=== PATIENT | male | born 1960 | race Two or more races ===

== ENCOUNTER 2018-10-25 14:06 | Inpatient (IN) | payer OTHER ==
[2018-10-25 14:21] VITALS: BMI 29.9
[2018-10-25] MEDS ORDERED: LABETALOL HCL 5 MG/1 ML (100MG/20 ML VIAL) IVPUSH ONE ×2 (14:22→15:41)
[2018-10-25] MEDS ORDERED: ONDANSETRON 4 MG/2 ML VIAL IVPUSH ONE (14:22)
[2018-10-25] MEDS ORDERED: SODIUM CHLORIDE 0.9% 1000 ML INFUS.BAG IV ONE (14:22)
[2018-10-25] MEDS ORDERED: PANTOPRAZOLE SODIUM 40 MG in SODIUM CHLORIDE 100 ML IVPB ONE (14:22)
--- NOTE | 2018-10-25 14:35 | PDOC ---
History of Present Illness - General Chief Complaint: Coffee Ground Emesis Stated Complaint: Nausea/Vomiting Time Seen by Provider: 10/25/18 14:12 History Source: Patient Exam Limitations: No Limitations - History of Present Illness Initial Comments: 10/25/18 15:15 58M with a PMH of hep C, DM, HTN, ESRD on dialysis MWF who presents to the ER from his dialysis center for nausea and coffee ground emesis. The patient states that he's had 3 days of nausea and coffee ground emesis with epigastric abdominal pain, intermittent, nonradiating. He denies CP, SOB, fever, chills. He denies hematochezia or melena. He denies any asa use. Past History - Past Medical History Allergies/Adverse Reactions: Allergies Allergy/AdvReac Type Severity Reaction Status Date / Time amlodipine [From [facility]] Allergy Verified 10/25/18 14:12 Home Medications: Ambulatory Orders Pantoprazole Sodium [Protonix -] 40 mg PO ONCE #20 tablet.ec 01/25/14 Metoprolol Succinate [Toprol Xl -] 50 mg PO DAILY 05/20/17 Sevelamer Carbonate [Renvela -] 2 tab PO TID 05/20/17 Albuterol Sulfate Inhaler - [Ventolin HFA Inhaler -] 1 - 2 inh PO Q4H PRN Atorvastatin Calcium [Lipitor] 20 mg PO HS 10/26/18 Insulin Glargine,Hum.rec.anlog [Basaglar Kwikpen U-100] 20 units SQ BID Zolpidem Tartrate [Ambien] 10 mg PO HS 10/26/18 Asthma: Yes Cancer: No Cardiac Disorders: No CVA: No COPD: No CHF: No Dementia: No Diabetes: Yes Dialysis: Yes GI Disorders: No Disorders: No HTN: Yes Hypercholesterolemia: No Liver Disease: Yes Seizures: No Thyroid Disease: No Other medical history: dialysis - Surgical History Abdominal Surgery: Yes (laceration) Appendectomy: No Cardiac Surgery: No Cholecystectomy: No Lung Surgery: No Neurologic Surgery: No Orthopedic Surgery: Yes (Bilateral lower leg fracture repair, pin placement) - Immunization History Immunization Up to Date: Yes - Suicide/Smoking/Psychosocial Hx Smoking History: Never smoked Have you smoked in the past 12 months: No If you are a former smoker, when did you quit?: 1990 'Breaking Loose' booklet given: 02/15/14 Hx Alcohol Use: No Drug/Substance Use Hx: No Review of Systems - Review of Systems Able to Perform ROS?: Yes Comments:: 10/25/18 15:19 GENERAL/CONSTITUTIONAL: No fever or chills. No weakness. HEAD, EYES, EARS, NOSE AND THROAT: No change in vision. No ear pain or discharge. No sore throat. CARDIOVASCULAR: No chest pain, palpitations, or lightheadedness. RESPIRATORY: No cough, wheezing, shortness of breath, or hemoptysis. GASTROINTESTINAL: + for nausea, vomiting, abdominal pain. GENITOURINARY: No dysuria, frequency, hematuria, or change in urination. MUSCULOSKELETAL: No joint or muscle swelling or pain. No neck or back pain. SKIN: No rash or lesions. NEUROLOGIC: No headache, numbness, tingling, focal weakness, loss of consciousness, or change in strength/sensation. Is the patient limited Kittitian proficient: No *Physical Exam - Vital Signs Last Vital Signs Temp Pulse Resp BP Pulse Ox 82 16 193/96 H 97 10/25/18 14:08 10/25/18 14:08 10/25/18 14:08 10/25/18 14:08 - Physical Exam Comments: 10/25/18 15:21 GENERAL: Well developed, well nourished. Awake and alert. No acute distress. HEENT: Normocephalic, atraumatic. Hearing grossly normal. Moist mucous membranes. PERRLA, EOMI. No conjunctival pallor. Sclera are non-icteric. NECK: Supple. Full ROM. No JVD. CARDIOVASCULAR: Regular rate and rhythm. No murmurs, rubs, or gallops. PULMONARY: No evidence of respiratory distress. Lungs clear to auscultation bilaterally. No wheezing, rales or rhonchi. ABDOMINAL: Soft. TTP w/ voluntary guarding over epigastrium. Negative Kaufman's. Non-distended. No rebound or guarding. MUSCULOSKELETAL: Normal range of motion at all joints. No bony deformities or tenderness. EXTREMITIES: No cyanosis. No clubbing. No edema. No calf tenderness or swelling. SKIN: Warm and dry. Normal capillary refill. No rashes. No jaundice. NEUROLOGICAL: Alert, awake, appropriate. Cranial nerves 2-12 grossly intact. Normal speech. Gait is normal without ataxia. PSYCHIATRIC: Cooperative. Good eye contact. Appropriate mood and affect. Heart Score/ECG Review #1 General ECG Interpretation: Sinus Rhythm, Normal Rate, Normal Intervals, No acute ischemic changes Compared to previous ECG there are: No significant change 10/25/18 15:22 NSR vent rate 80 VA 166 QRS 92 QTc 472 No STD or ANJANA No signs of acute ischemia Possible [facility] ED Treatment Course - LABORATORY CBC & Chemistry Diagram: 10/26/18 16:03 10/26/18 05:30 - RADIOLOGY Radiology Studies Ordered: Category Date Time Status CHEST X-RAY PORTABLE* [RAD] Stat Radiology 10/25/18 14:28 Ordered Medical Decision Making - Medical Decision Making 10/25/18 14:30 58M with a PMH of Hep C, HTN, DM, ESRD on dialysis MWF who had 3 our of 4 hours of dialysis today who presents with nausea and coffee ground emesis with epigastric abd pain. Pt was seen at [facility] yesterday. CTAP on 10/24 at [facility]: No acute process. Liver nodularity. No FF. Case d/w Dr. Vanegas, pt's GI doctor, who has not seen pt in 2 years. He states to give reglan, zofran, and protonix. Will hold on fluids and treat BP with labetalol (pt takes metoprolol but cannot tolerate PO and threw up his medications). Pending labs. Preliminary read of CXR shows mild hilar congestion without widening of mediastinum, less concerning for boorhave. 10/25/18 16:35 CBC shows mild leukocytosis, likely reactive. CMP unremarkable. Trop and lipase negative. Pt has not vomited since medications given. Most recent BP is 166/78. 10/25/18 18:31 Pt has not vomited since medications. Second labetalol not needed. Pending CT's. 10/25/18 19:03 Pt signed out to Dr. Rosa for further workup. *DC/Admit/Observation/Transfer Diagnosis at time of Disposition: ESRD (end stage renal disease), Abdominal pain, Hypertensive urgency, Coffee ground emesis Nausea & vomiting Qualifiers: Vomiting type: unspecified Vomiting Intractability: non-intractable Qualified Code(s): R11.2 - Nausea with vomiting, unspecified - Discharge Dispostion Disposition: HOME Condition at time of disposition: Improved - Referrals - Patient Instructions - Post Discharge Activity
[2018-10-25 14:58] LABS: BASO % 0.8 % (0-2.0); EOS % 0.1 % (0-4.5); HEMATOCRIT 43.1 % (35.4-49); HEMOGLOBIN 14.5 GM/dL (11.7-16.9); MCH 32.8 pg (25.7-33.7); MCHC 33.6 g/dl (32.0-35.9); MEAN CELL VOLUME 97.6 fl (80-96); MEAN PLT VOLUME 8.8 fl (7.5-11.1); MONO % 3.6 % (3.8-10.2); NEUT % 91.5 % (42.8-82.8); PLATELET COUNT 205 K/MM3 (134-434); RBC 4.42 M/mm3 (4.00-5.60); RDW 15.3 % (11.9-15.9); WHITE BLOOD COUNT 14.4 K/mm3 (4.0-10.0)
[2018-10-25] MEDS ORDERED: METOCLOPRAMIDE HCL INJECTION 10 MG/2 ML VIAL IVPB ONE (14:58)
[2018-10-25] MEDS ORDERED: METOCLOPRAMIDE HCL INJECTION 10 MG/2 ML VIAL ONE (15:03)
[2018-10-25] MEDS ORDERED: LABETALOL HCL 5 MG/1 ML (200MG/40ML VIAL) IVPB ONE (15:03)
[2018-10-25] MEDS ORDERED: PANTOPRAZOLE SODIUM 40 MG/100 ML BAG IVPB ONE (15:04)
[2018-10-25] MEDS ORDERED: ONDANSETRON 4 MG/2 ML VIAL ONE (15:04)
[2018-10-25 15:11] LABS: INR 1.1 (0.83-1.09)
[2018-10-25 15:30] LABS: ALBUMIN 4.7 g/dl (3.4-5.0); ALK PHOS 128 U/L (45-117); ANION GAP 10 MMOL/L (8-16); BILIRUBIN,TOTAL 0.8 mg/dL (0.2-1); BLOOD UREA NITROGEN 15 mg/dL (7-18); CALCIUM 10.5 mg/dL (8.5-10.1); CHLORIDE 93 mmol/L (98-107); CO2 30 mmol/L (21-32); GLUCOSE,RANDOM 189 mg/dL (74-106); LIPASE 61 U/L (73-393); POTASSIUM 4.2 mmol/L (3.5-5.1); SGOT/AST 23 U/L (15-37); SGPT/ALT 27 U/L (13-61); SODIUM 132 mmol/L (136-145); TOT PROT 9.5 g/dl (6.4-8.2)
[2018-10-25 15:33] LABS: ANISOCYTOSIS 0; MACROCYTOSIS 0; PLATELET ESTIMATE NORMAL
[2018-10-25] MEDS ORDERED: FAMOTIDINE 20 MG/50 ML IVPB 20 MG/50 ML MG IVPB ONE (15:45)
--- NOTE | 2018-10-25 15:46 | PDOC ---
Documentation entered by Mariela Wells SCRIBE, acting as scribe for Lexi Yousif MD. Lexi Yousif MD: This documentation has been prepared by the jamaalibe, Mariela Wells SCRIBE, under my direction and personally reviewed by me in its entirety. I confirm that the documentation accurately reflects all work, treatment, procedures, and medical decision making performed by me. Attending Attestation - Resident Resident Name: RichallendannyNatanael - ED Attending Attestation I have performed the following: I have examined & evaluated the patient, The case was reviewed & discussed with the resident, I agree w/resident's findings & plan, Exceptions are as noted - HPI HPI: 10/25/18 15:22 The patient is a 58 year old male with a significant past medical history of asthma , GERD, hypertension and ESRD who presents to the emergency department with 3 days of coffee ground emesis. The patient reports that he has been experiencing some associated epigastric pain with his symptoms. The patient states that he was at his dialysis treatment today when he had another episode of coffee ground emesis. The patient subsequently was sent to the ED before finishing his dialysis (he finished 3 of 4 hours). It is noted that the patient was recently seen at [facility] ED for similar complaints 2 days ago. He denies ad other symptoms or complaints at time of exam. - Physicial Exam PE: 10/25/18 15:43 awake alert lungs clear bilaterally heart rrr. no mrg abd soft. epigastric ttp. ext wwp no edema. no calf tenderness. skin mild diphoresis nuero alert oriented x 3. - Medical Decision Making 10/25/18 15:33 58 yo male h/o esrd gerd, dm htn hep c here with n/v at dialysis. pt has been unable to tolerate his meds today due to vomiting. was able to complete 3 or 4 hours at dialysis unable to finish due to intractable vomiting. pt was seen at [facility] yesterday had ct a/p no contrast performed which was negative except for nodularity of liver. on exam pt with awake alert normal heart lung exam. abd ttp over epigastrum. no rebound no guarding. no cva tenderness. differential atypical acs, cholelithiasis, dka dehydration, electorlyte abnormalities. c/o headache. will ct head r/o intracranial cause for n/v. will cxr r/o pneumonia. d/w [facility]. faxed copy of ct a/p to avoid over radiation. given labetalol 10 mg ivp for bp as pt unable to tolerate po. will likely require admission for intractable vomiting. d/w dr hanson. will see pt [facility]. Heart Score/ECG Review #1 ECG reviewed & interpreted by me at: 15:45 General ECG Interpretation: Sinus Rhythm, Normal Rate, Normal Intervals, No acute ischemic changes (TWi III only.)
--- NOTE | 2018-10-25 17:57 | PDOC ---
*Physical Exam - Vital Signs Last Vital Signs Temp Pulse Resp BP Pulse Ox 75 16 166/88 97 10/25/18 15:43 10/25/18 15:15 10/25/18 16:25 10/25/18 15:15 - Physical Exam Comments: 10/25/18 17:55 gen: awake, alert, uncomfortable abd: soft, mild diffuse ttp, no rebound or gurding, dry heaving after exam ED Treatment Course - LABORATORY CBC & Chemistry Diagram: 10/25/18 14:35 10/25/18 14:35 - ADDITIONAL ORDERS Additional order review: Laboratory Results 10/25/18 10/25/18 10/25/18 14:35 14:35 14:35 PT with INR 13.00 INR 1.10 H Sodium 132 L Potassium 4.2 Chloride 93 L Carbon Dioxide 30 Anion Gap 10 BUN 15 Creatinine 5.0 H Creat Clearance w eGFR 11.90 Random Glucose 189 H Calcium 10.5 H Total Bilirubin 0.8 AST 23 ALT 27 Alkaline Phosphatase 128 H Creatine Kinase 142 Troponin I 0.03 Total Protein 9.5 H Albumin 4.7 Lipase 61 L Blood Type O POSITIVE Antibody Screen Negative 10/25/18 14:35 RBC 4.42 MCV 97.6 H MCHC 33.6 RDW 15.3 D MPV 8.8 Neutrophils % 91.5 H Lymphocytes % 4.0 L D Monocytes % 3.6 L Eosinophils % 0.1 D Basophils % 0.8 - Medications Given in the ED: ED Medications Discontinued Medications Generic Name Dose Route Start Last Admin Trade Name Freq PRN Reason Stop Dose Admin Pantoprazole Sodium 40 mg/ 100 mls @ 200 mls/hr 10/25/18 14:22 10/25/18 15:10 Sodium Chloride IVPB 10/25/18 14:51 200 mls/hr ONCE ONE Administration Famotidine/Sodium Chloride 20 mg in 50 mls @ 100 mls/hr 10/25/18 15:45 15:56 Pepcid 20 Mg Premixed Ivpb - IVPB 10/25/18 16:14 100 mls/hr ONCE ONE Administration Labetalol HCl 10 mg 10/25/18 14:22 10/25/18 15:18 Normodyne Injection - IVPUSH 10/25/18 14:23 10 mg ONCE ONE Administration Labetalol HCl 10 mg 10/25/18 15:41 04/24/19 15:56 Normodyne Injection - IVPUSH 10/25/18 15:42 Not Given ONCE ONE Metoclopramide HCl 10 mg 10/25/18 14:58 10/25/18 15:10 Reglan Injection - IVPB 10/25/18 14:59 10 mg ONCE ONE Administration Ondansetron HCl 4 mg 10/25/18 14:22 10/25/18 15:10 Zofran Injection IVPUSH 10/25/18 14:23 4 mg ONCE ONE Administration Sodium Chloride 1,000 ml 10/25/18 14:22 10/25/18 15:22 Normal Saline - IV 10/25/18 14:23 Not Given ONCE ONE Medical Decision Making - Medical Decision Making 10/25/18 17:55 58yo male signed out from the prior attending pending labs, ct imaging -pt with uncontrolled BP, iv meds given -persistent intractable n/v -bedside ultrasound the GB was negative for acute monique or acute findings -ct imaging without contrast was negative at [facility] -pt pending ct head and abd/pelvis 10/25/18 17:57 mildly elevated wbc 10/25/18 17:58 mild congestive changes on cxr 10/25/18 17:58 pt with ESRD on HD 10/25/18 20:39 no acute findings on abd ct no acute findings on head ct Dr. Hernandez has discussed with Dr. Sorensen from nephro intractable n/v- poss coffee grounds microblog [facility] Alonso 10/25/18 21:27 resident discussed the case with Dr. Nj who accepts pt to service *DC/Admit/Observation/Transfer Diagnosis at time of Disposition: Nausea & vomiting, ESRD (end stage renal disease), Abdominal pain - Discharge Dispostion Condition at time of disposition: Guarded Decision to Admit order: Yes - Referrals Referrals: Bren Alonso MD [Primary Care Provider] - - Patient Instructions - Post Discharge Activity
--- NOTE | 2018-10-25 19:15 | PDOC ---
*Physical Exam - Vital Signs Last Vital Signs Temp Pulse Resp BP Pulse Ox 75 16 166/88 97 10/25/18 15:43 10/25/18 15:15 10/25/18 16:25 10/25/18 15:15 ED Treatment Course - LABORATORY CBC & Chemistry Diagram: 10/25/18 14:35 10/25/18 14:35 - ADDITIONAL ORDERS Additional order review: Laboratory Results 10/25/18 10/25/18 10/25/18 14:35 14:35 14:35 PT with INR 13.00 INR 1.10 H Sodium 132 L Potassium 4.2 Chloride 93 L Carbon Dioxide 30 Anion Gap 10 BUN 15 Creatinine 5.0 H Creat Clearance w eGFR 11.90 Random Glucose 189 H Calcium 10.5 H Total Bilirubin 0.8 AST 23 ALT 27 Alkaline Phosphatase 128 H Creatine Kinase 142 Troponin I 0.03 Total Protein 9.5 H Albumin 4.7 Lipase 61 L Blood Type O POSITIVE Antibody Screen Negative 10/25/18 14:35 RBC 4.42 MCV 97.6 H MCHC 33.6 RDW 15.3 D MPV 8.8 Neutrophils % 91.5 H Lymphocytes % 4.0 L D Monocytes % 3.6 L Eosinophils % 0.1 D Basophils % 0.8 - Medications Given in the ED: ED Medications Discontinued Medications Generic Name Dose Route Start Last Admin Trade Name Shubhamq PRN Reason Stop Dose Admin Pantoprazole Sodium 40 mg/ 100 mls @ 200 mls/hr 10/25/18 14:22 10/25/18 15:10 Sodium Chloride IVPB 10/25/18 14:51 200 mls/hr ONCE ONE Administration Famotidine/Sodium Chloride 20 mg in 50 mls @ 100 mls/hr 10/25/18 15:45 15:56 Pepcid 20 Mg Premixed Ivpb - IVPB 10/25/18 16:14 100 mls/hr ONCE ONE Administration Labetalol HCl 10 mg 10/25/18 14:22 10/25/18 15:18 Normodyne Injection - IVPUSH 10/25/18 14:23 10 mg ONCE ONE Administration Labetalol HCl 10 mg 10/25/18 15:41 10/25/18 15:56 Normodyne Injection - IVPUSH 10/25/18 15:42 Not Given ONCE ONE Metoclopramide HCl 10 mg 10/25/18 14:58 10/25/18 15:10 Reglan Injection - IVPB 10/25/18 14:59 10 mg ONCE ONE Administration Ondansetron HCl 4 mg 10/25/18 14:22 10/25/18 15:10 Zofran Injection IVPUSH 10/25/18 14:23 4 mg ONCE ONE Administration Sodium Chloride 1,000 ml 10/25/18 14:22 10/25/18 15:22 Normal Saline - IV 10/25/18 14:23 Not Given ONCE ONE Medical Decision Making - Medical Decision Making Pt was signed out to me by resident Dr. Hernandez, who explained the presentation, ED course, any pending results, and needed interventions. Pending results include CT abd/pelvis with IV contrast. Pt is currently stable and BP has improved after interventions from arrival. 10/25/18 19:14 CT head showed no acute pathology. CT abd/pelvis: Impression: No definite specific bleeding site is identified. In comparison to a 2014 CT study interval development of at least moderate bilateral renal atrophy is noted. 10/25/18 20:40 Paging hospitalist team for admission to tele inpatient with dialysis bed. 10/25/18 20:50 Stool for occult blood sent to lab. 10/25/18 21:11 Stool for occult blood negative. Pt resting comfortably in bed. Spoke with Dr. Nj, pt admitted to Dr. Denise Meraz. 10/25/18 21:26 *DC/Admit/Observation/Transfer Diagnosis at time of Disposition: Hypertensive urgency, ESRD (end stage renal disease), Coffee ground emesis Nausea & vomiting Qualifiers: Vomiting type: unspecified Vomiting Intractability: non-intractable Qualified Code(s): R11.2 - Nausea with vomiting, unspecified - Discharge Dispostion Condition at time of disposition: Stable Decision to Admit order: Yes - Referrals Referrals: Bren Alonso MD [Primary Care Provider] - - Patient Instructions - Post Discharge Activity
[2018-10-25] MEDS ORDERED: ALBUTEROL SO4 2.5/IPRATROPIUM 0.5 INH SOL 3 ML VIAL.NEB. NEB ONE ×2 (20:47→20:51)
[2018-10-25] MEDS ORDERED: ZOLPIDEM TARTRATE 5 MG TABLET PO ONE (21:59)
[2018-10-25] MEDS ORDERED: ZOLPIDEM TARTRATE 5 MG TABLET ONE (22:37)
--- NOTE | 2018-10-25 22:38 | HP ---
CHIEF COMPLAINT: coffee ground emesis PCP: Bren Durant HISTORY OF PRESENT ILLNESS: 58 year old male ESRD on HD m-- brought in for episode of coffee ground emesis which occured on 10/25 during his hemodialysis session and concern for GI bleed. Patient reported multiple episodes of nonbloody vomiting and diarrhea since this past tuesday and thinks it may be from food poisoning. Denied any recent travels. He has history of PUD s/p EGD about 10 years ago. He admitted to using NSAIDS recently for lower extremity pain. 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 Currently does not use drugs Family History:no Allergies amlodipine [From [facility]] Allergy (Verified 10/25/18 14:12) HOME MEDICATIONS: Home Medications Medication Instructions Recorded Insulin Aspart [Novolog] 20 units SQ DAILY 01/24/14 Insulin Glargine,Hum.rec.anlog 20 units SQ HS 01/24/14 [Lantus Solostar PEN -] Tamsulosin HCl [Flomax -] 0.4 mg PO DAILY 01/24/14 Ondansetron [Zofran Odt -] 4 mg SL TID #30 od.tablet 01/25/14 Pantoprazole Sodium [Protonix -] 40 mg PO ONCE #20 tablet.ec 01/25/14 Aspirin [ASA -] 81 mg PO DAILY 05/20/17 Budesonide/Formeterol Fumarate 1 inh PO BID 05/20/17 [SYMBICORT 160/4.5mcg -] Ferrous Sulfate 325 mg PO DAILY 05/20/17 Furosemide [Lasix] 40 mg PO DAILY 05/20/17 Hydralazine HCl 100 mg PO TID 05/20/17 Losartan Potassium [Cozaar -] 1,050 mg PO DAILY 05/20/17 Metolazone 10 mg PO DAILY 05/20/17 Metoprolol Succinate [Toprol Xl -] 50 mg PO DAILY 05/20/17 Paroxetine HCl 10 mg PO DAILY 05/20/17 Ranexa 500 mg PO DAILY 05/20/17 Sevelamer Carbonate [Renvela -] 1 tab PO TID 05/20/17 Tamsulosin HCl 0.4 mg PO DAILY 05/20/17 REVIEW OF SYSTEMS CONSTITUTIONAL: Absent: fever, chills, diaphoresis, generalized weakness, malaise, loss of appetite, weight change HEENT: Absent: rhinorrhea, nasal congestion, throat pain, throat swelling, difficulty swallowing, mouth swelling, ear pain, eye pain, visual changes CARDIOVASCULAR: Absent: chest pain, syncope, palpitations, irregular heart rate, lightheadedness , peripheral edema RESPIRATORY: Absent: cough, shortness of breath, dyspnea with exertion, orthopnea, wheezing, stridor, hemoptysis GASTROINTESTINAL: Absent: abdominal pain, abdominal distension, constipation, melena, hematochezia present-nausea, vomiting, diarrhea, GENITOURINARY: Absent: dysuria, frequency, urgency, hesitancy, hematuria, flank pain, genital pain MUSCULOSKELETAL: Absent: myalgia, arthralgia, joint swelling, back pain, neck pain SKIN: Absent: rash, itching, pallor HEMATOLOGIC/IMMUNOLOGIC: Absent: easy bleeding, easy bruising, lymphadenopathy, frequent infections ENDOCRINE: Absent: unexplained weight gain, unexplained weight loss, heat intolerance, cold intolerance NEUROLOGIC: Absent: headache, focal weakness or paresthesias, dizziness, unsteady gait, seizure, mental status changes, bladder or bowel incontinence PSYCHIATRIC: Absent: anxiety, depression, suicidal or homicidal ideation, hallucinations. PHYSICAL EXAMINATION Vital Signs - 24 hr 10/25/18 10/25/18 10/25/18 14:08 15:15 15:43 Pulse Rate 82 Pulse Rate [ 80 75 Right] Respiratory 16 16 Rate Blood Pressure 193/96 H Blood Pressure 225/93 H 187/78 H [Left Arm] O2 Sat by Pulse 97 97 Oximetry (%) 10/25/18 16:25 Pulse Rate Pulse Rate [ Right] Respiratory Rate Blood Pressure Blood Pressure 166/88 [Left Arm] O2 Sat by Pulse Oximetry (%) GENERAL: Awake, alert, and fully oriented, in no acute distress. HEAD: Normal with no signs of trauma. EYES: Pupils equal, round and reactive to light, extraocular movements intact, sclera anicteric, conjunctiva clear. No lid lag. EARS, NOSE, THROAT: Ears normal, nares patent, oropharynx clear without exudates. Moist mucous membranes. NECK: Normal range of motion, supple without lymphadenopathy, JVD, or masses. LUNGS: Breath sounds equal, clear to auscultation bilaterally. No wheezes, and no crackles. No accessory muscle use. HEART: Regular rate and rhythm, normal S1 and S2 without murmur, rub or gallop. ABDOMEN: Soft, nontender, not distended, normoactive bowel sounds, midline scar s/p ex lap surgery MUSCULOSKELETAL: Normal range of motion at all joints. No bony deformities or tenderness. No CVA tenderness. UPPER EXTREMITIES:right upper ext AV fistul good thrill and bruit LOWER EXTREMITIES: 2+ pulses, warm, well-perfused. No calf tenderness. No peripheral edema. NEUROLOGICAL: Cranial nerves II-XII intact. Normal speech. Normal gait. PSYCHIATRIC: Cooperative. Good eye contact. Appropriate mood and affect. SKIN: Warm, dry, normal turgor, no rashes or lesions noted, normal capillary refill. Laboratory Results - last 24 hr 10/25/18 10/25/18 10/25/18 14:35 14:35 14:35 WBC 14.4 H RBC 4.42 Hgb 14.5 Hct 43.1 D MCV 97.6 H MCH 32.8 MCHC 33.6 RDW 15.3 D Plt Count 205 MPV 8.8 Absolute Neuts (auto) 13.2 H Neutrophils % 91.5 H Neutrophils % (Manual) 89.0 H Band Neutrophils % 0.0 Lymphocytes % 4.0 L D Lymphocytes % (Manual) 3.0 L Monocytes % 3.6 L Monocytes % (Manual) 6 Eosinophils % 0.1 D Eosinophils % (Manual) 0.0 Basophils % 0.8 Basophils % (Manual) 0.0 Myelocytes % (Man) 0 Promyelocytes % (Man) 0 Blast Cells % (Manual) 0 Nucleated RBC % 0 Metamyelocytes 2 Hypochromia 0 Platelet Estimate Normal Polychromasia 0 Poikilocytosis 0 Anisocytosis 0 Microcytosis 0 Macrocytosis 0 PT with INR INR Sodium 132 L Potassium 4.2 Chloride 93 L Carbon Dioxide 30 Anion Gap 10 BUN 15 Creatinine 5.0 H Creat Clearance w eGFR 11.90 Random Glucose 189 H Calcium 10.5 H Total Bilirubin 0.8 AST 23 ALT 27 Alkaline Phosphatase 128 H Creatine Kinase 142 Troponin I 0.03 Total Protein 9.5 H Albumin 4.7 Lipase 61 L Stool Occult Blood Blood Type O POSITIVE Antibody Screen Negative 10/25/18 10/25/18 14:35 21:06 WBC RBC Hgb Hct MCV MCH MCHC RDW Plt Count MPV Absolute Neuts (auto) Neutrophils % Neutrophils % (Manual) Band Neutrophils % Lymphocytes % Lymphocytes % (Manual) Monocytes % Monocytes % (Manual) Eosinophils % Eosinophils % (Manual) Basophils % Basophils % (Manual) Myelocytes % (Man) Promyelocytes % (Man) Blast Cells % (Manual) Nucleated RBC % Metamyelocytes Hypochromia Platelet Estimate Polychromasia Poikilocytosis Anisocytosis Microcytosis Macrocytosis PT with INR 13.00 INR 1.10 H Sodium Potassium Chloride Carbon Dioxide Anion Gap BUN Creatinine Creat Clearance w eGFR Random Glucose Calcium Total Bilirubin AST ALT Alkaline Phosphatase Creatine Kinase Troponin I Total Protein Albumin Lipase Stool Occult Blood Negative Blood Type Antibody Screen imaging studies reviewed ASSESSMENT/PLAN: #Coffee ground emesis - likely from upper GI bleed. Source of bleed may be gastric or duodenal ulcer since pt reports history of PUD. Recent use of NSAIDs make this more likely. Differential diagnosis also includes foodborne gastroenteritis. Patient is hemodynamically stable for admission to telemetry. -telemetry -protonix 40mg IV bid -avoid IV fluid since ESRD -zofran IV prn if nausea or vomiting -avoid NSAIDS., ASA, heparin sc -monitor VS q4hrs -keep NPO -PT, PTT, t, s -monitor cbc q6hrs -GI consult for possible EGD in am #ESRD on HD- m-w-f - does not appears fluid overloaded on exam -renal consult for HD -c/w home renal meds - Sevelamer, ferrous sulfate #HTN- likely secondary to renal failure -c/w home dose meds- furosemide, hydralazine, metolazone, Toprolol XL -would avoid ARBs due to risk of hyperkalemia in setting of renal failure #DM -uncontrolled , pt is NPO -loose novolog insulin sliding scale -a1c #Insomnia -ambien #DVT ppx- SCDs Visit type - Emergency Visit Emergency Visit: Yes ED Registration Date: 10/25/18 Care time: The patient presented to the Emergency Department on the above date and was hospitalized for further evaluation of their emergent condition. - New Patient This patient is new to me today: Yes Date on this admission: 10/25/18 - Critical Care Critical Care patient: No
[2018-10-25] MEDS ORDERED: ONDANSETRON 4 MG/2 ML VIAL IVPUSH PRN (22:49)
[2018-10-26] MEDS: hydrALAZINE HCL 50 MG TABLET (FP) PO SCH ×2 (06:12→14:04)
[2018-10-26] MEDS: INSULIN SLIDING SCALE (NOVOLOG) 1 VIAL SQ SCH ×3 (06:13→17:35)
[2018-10-26 06:32] LABS: BASO % 0.9 % (0-2.0); EOS % 0.6 % (0-4.5); HEMATOCRIT 38.6 % (35.4-49); HEMOGLOBIN 13.3 GM/dL (11.7-16.9); LYMPH % 11.3 % (8-40); MCH 33.4 pg (25.7-33.7); MCHC 34.4 g/dl (32.0-35.9); MEAN CELL VOLUME 97.1 fl (80-96); MEAN PLT VOLUME 8.6 fl (7.5-11.1); MONO % 6.2 % (3.8-10.2); PLATELET COUNT 200 K/MM3 (134-434); RBC 3.98 M/mm3 (4.00-5.60); RDW 15.4 % (11.9-15.9); WHITE BLOOD COUNT 9.1 K/mm3 (4.0-10.0)
[2018-10-26 07:01] LABS: BLOOD UREA NITROGEN 31 mg/dL (7-18); CREATININE 7.3 mg/dL (0.55-1.3); GLUCOSE,RANDOM 173 mg/dL (74-106); SODIUM 133 mmol/L (136-145)
[2018-10-26 07:02] LABS: ANION GAP 9 MMOL/L (8-16); CALCIUM 9.6 mg/dL (8.5-10.1); CHLORIDE 95 mmol/L (98-107); CO2 30 mmol/L (21-32); POTASSIUM 4.4 mmol/L (3.5-5.1)
--- NOTE | 2018-10-26 08:54 | CON.GI ---
Consult Consult Specialty:: GI Referred by:: Dr. Natanael Hernandez Reason for Consultation:: GI bleed - History of Present Illness Chief Complaint: coffee ground emesis and diarrhea History of Present Illness: Patient is a 58 y/o male with past medical history of ESRD (HD on --), Asthma , GERD, DM, BPH, PUD on EGD. Patient presented to ER with complaints of vomiting and diarrhea accompanied with lower burning abdominal pain and abdominal distention. Patient states vomitin started after ingesting anguillan food 10/22/18. Patient states vomitus was coffee colored and diarrhea was dark in color with 5 episodes per day. Denies recent travel, antibiotic use, fever. Vomiting was worsened with PO intake and would experience night awakening with diarrhea. Most recent labs show Hg 13.3 and stool OB negative in ER. Patient states last Endoscopy was one year ago but is unsure of date and last Colonoscopy was performed 03/2014 with colonic polyp. Denies rectal bleeding, abnormal weight loss, dysphagia. - History Source History Provided By: Patient Limitations to Obtaining History: No Limitations - Past Medical History Cardio/Vascular: Yes: HTN, Hyperlipdemia Gastrointestinal: Yes: GERD Renal/: Yes: BPH Endocrine: Yes: Diabetes Mellitus - Alcohol/Substance Use Hx Alcohol Use: No - Smoking History Smoking history: Former smoker Have you smoked in the past 12 months: No If you are a former smoker, when did you quit?: 1989 - Social History ADL: Independent History of Recent Travel: No Home Medications - Allergies Allergies/Adverse Reactions: Allergies Allergy/AdvReac Type Severity Reaction Status Date / Time amlodipine [From [facility]] Allergy Verified 10/25/18 14:12 - Home Medications Home Medications: Ambulatory Orders Insulin Aspart [Novolog] 20 units SQ DAILY 01/24/14 Insulin Glargine,Hum.rec.anlog [Lantus Solostar PEN -] 20 units SQ HS 01/24/14 Tamsulosin HCl [Flomax -] 0.4 mg PO DAILY 01/24/14 Pantoprazole Sodium [Protonix -] 40 mg PO ONCE #20 tablet.ec 01/25/14 Aspirin [ASA -] 81 mg PO DAILY 05/20/17 Budesonide/Formeterol Fumarate [SYMBICORT 160/4.5mcg -] 1 inh PO BID 05/20/17 Ferrous Sulfate 325 mg PO DAILY 05/20/17 Hydralazine HCl 100 mg PO TID 05/20/17 Losartan Potassium [Cozaar -] 1,050 mg PO DAILY 05/20/17 Metolazone 10 mg PO DAILY 05/20/17 Metoprolol Succinate [Toprol Xl -] 50 mg PO DAILY 05/20/17 Paroxetine HCl 10 mg PO DAILY 05/20/17 Ranexa 500 mg PO DAILY 05/20/17 Sevelamer Carbonate [Renvela -] 1 tab PO TID 05/20/17 Review of Systems - Review of Systems Constitutional: reports: No Symptoms Eyes: reports: No Symptoms HENT: reports: No Symptoms Neck: reports: No Symptoms Cardiovascular: reports: No Symptoms Gastrointestinal: reports: Abdominal Pain, Diarrhea, Nausea, Vomiting Genitourinary: reports: No Symptoms Breasts: reports: No Symptoms Reported Musculoskeletal: reports: No Symptoms Integumentary: reports: No Symptoms Neurological: reports: No Symptoms Endocrine: reports: No Symptoms Hematology/Lymphatic: reports: No Symptoms Psychiatric: reports: No Symptoms Physical Exam-GI Vital Signs: Vital Signs Temperature 98.6 F 10/26/18 06:00 Pulse Rate 71 10/26/18 06:00 Respiratory Rate 18 10/26/18 06:00 Blood Pressure 156/88 10/26/18 06:00 O2 Sat by Pulse Oximetry (%) 98 10/26/18 01:00 Constitutional: Yes: No Distress, Calm Eyes: Yes: Conjunctiva Clear HENT: Yes: Atraumatic Cardiovascular: Yes: Regular Rate and Rhythm Respiratory: Yes: Regular, Wheezes Gastrointestinal Inspection: Yes: WNL. No: Ascites, Distention, Hernia, Scars, Other ...Auscultate: Yes: Normoactive Bowel Sounds. No: Hyperactive Bowel Sounds, Hypoactive Bowel Sounds, No Bowel Sounds, Other ...Palpate: Yes: Soft. No: Firm/Rigid, Guarding, Hepatomegaly, Mass, Pulsatile Mass, Splenomegaly, Tenderness, Tenderness, Epigastium, Tenderness, Rebound, Other ...Percussion: Yes: Tympanitic. No: Dullness, Fluid Wave, Other Neurological: Yes: Alert, Oriented Psychiatric: Yes: Alert, Oriented Labs: CBC, BMP 10/26/18 05:30 10/26/18 05:30 INR, PTT INR 1.10 (0.83-1.09) H 10/25/18 14:35 Active Medications Generic Name Dose Route Start Last Admin Trade Name Freq PRN Reason Stop Dose Admin Budesonide/Formoterol Fumarate 1 puff 10/26/18 10:00 Symbicort 160/4.5mcg - IH BID [facility] Ferrous Sulfate 325 mg 10/26/18 10:00 Feosol - PO DAILY [facility] Furosemide 40 mg 10/26/18 10:00 Lasix - PO DAILY [facility] Hydralazine HCl 100 mg 10/26/18 06:00 10/26/18 06:12 Apresoline - PO 100 mg TID [facility] Administration Insulin Aspart 1 vial 10/26/18 07:00 10/26/18 06:13 Novolog Vial Sliding Scale - SQ Not Given ACHS [facility] Protocol Metolazone 10 mg 10/26/18 10:00 Zaroxolyn - PO DAILY [facility] Metoprolol Succinate 50 mg 10/26/18 10:00 Toprol Xl - PO DAILY [facility] Ondansetron HCl 4 mg 10/25/18 22:49 Zofran Injection IVPUSH Q6H PRN NAUSEA AND/OR VOMITING Pantoprazole Sodium 40 mg 10/26/18 10:00 Protonix Iv IVPUSH BID [facility] Paroxetine HCl 10 mg 10/26/18 10:00 Paxil - PO DAILY [facility] Ranolazine 500 mg 10/26/18 10:00 Ranexa - PO DAILY [facility] Sevelamer Carbonate 800 mg 10/26/18 08:00 Renvela - PO TIDCM [facility] Tamsulosin HCl 0.4 mg 10/26/18 10:00 Flomax - PO DAILY [facility] Problem List - Problems (1) Coffee ground emesis Assessment/Plan: >diet changed to clear liquids >continue pantoprazole >monitor Hg daily--current Hg stable at 13.3 Code(s): K92.0 - HEMATEMESIS
[2018-10-26] MEDS: SEVELAMER CARBONATE 800 MG TAB (FP) PO SCH ×2 (09:19→13:30)
[2018-10-26] MEDS ORDERED: PANTOPRAZOLE SODIUM 40 MG VIAL IVPUSH SCH (10:00)
[2018-10-26] MEDS ORDERED: PARoxetine HCL 10 MG TABLET (FP) PO SCH (10:00)
[2018-10-26] MEDS ORDERED: BUDESONIDE/FORMETEROL FUMARATE 160/4.5 mcg INHALER IH SCH (10:00)
[2018-10-26] MEDS ORDERED: METOLAZONE 5 MG TABLET PO SCH (10:00)
[2018-10-26] MEDS ORDERED: RANOLAZINE E.R. 500 MG TABLET (FP) PO SCH (10:00)
[2018-10-26] MEDS ORDERED: TAMSULOSIN HCL 0.4 MG CAP PO SCH (10:00)
[2018-10-26] MEDS ORDERED: FUROSEMIDE 40 MG TABLET (FP) PO SCH (10:00)
[2018-10-26] MEDS ORDERED: FERROUS SO4 325 MG TABLET (FP) PO SCH (10:00)
--- NOTE | 2018-10-26 12:08 | EKG ---
Test Reason : Blood Pressure : / mmHG Vent. Rate : 083 BPM Atrial Rate : 083 BPM P-R Int : 166 ms QRS Dur : 092 ms QT Int : 402 ms P-R-T Axes : 055 063 040 degrees QTc Int : 472 ms POOR DATA QUALITY, INTERPRETATION MAY BE ADVERSELY AFFECTED NORMAL SINUS RHYTHM POSSIBLE LEFT ATRIAL ENLARGEMENT LEFT VENTRICULAR HYPERTROPHY ABNORMAL ECG WHEN COMPARED WITH ECG OF 14-FEB-2014 23:52, NONSPECIFIC T WAVE ABNORMALITY NO LONGER EVIDENT IN LATERAL LEADS Confirmed by RON ROCA MD ([id number]) on 10/26/2018 12:08:44 PM Referred By: Confirmed By:RON ROCA MD
[2018-10-26 14:01] VITALS: BP 136/72; PULSE 78; TEMP 98
--- NOTE | 2018-10-26 14:06 | CONSULT ---
Consult Consult Specialty:: Nephrology ( Tejinder/ Edu) Reason for Consultation:: 58 y/o male on Hemodialysis. - History of Present Illness Chief Complaint: 58 year old male ESRD on HD brought in for episode of coffee ground emesis which occured yesterday during his hemodialysis session and concern for GI bleed. The patient has h/o DM2. Hypertension, BPH. Patient reported multiple episodes of nonbloody vomiting and diarrhea since this past tuesday and he believes it may be from food poisoning. Denies any recent travels. He has history of PUD s/p EGD about 10 years ago. He admits using NSAIDS recently for lower extremity pain. History of Present Illness: 58 y/o male on Hemodialysis through [facility]. - History Source History Provided By: Patient - Past Medical History Cardio/Vascular: Yes: HTN, Hyperlipdemia Gastrointestinal: Yes: GERD Renal/: Yes: Renal Failure, BPH, Hemodialysis Endocrine: Yes: Diabetes Mellitus - Alcohol/Substance Use Hx Alcohol Use: No - Smoking History Smoking history: Former smoker Have you smoked in the past 12 months: No If you are a former smoker, when did you quit?: 1989 - Social History ADL: Independent History of Recent Travel: No Home Medications - Allergies Allergies/Adverse Reactions: Allergies Allergy/AdvReac Type Severity Reaction Status Date / Time amlodipine [From [facility]] Allergy Verified 10/25/18 14:12 - Home Medications Home Medications: Ambulatory Orders Insulin Aspart [Novolog] 20 units SQ DAILY 01/24/14 Insulin Glargine,Hum.rec.anlog [Lantus Solostar PEN -] 20 units SQ HS 01/24/14 Tamsulosin HCl [Flomax -] 0.4 mg PO DAILY 01/24/14 Pantoprazole Sodium [Protonix -] 40 mg PO ONCE #20 tablet.ec 01/25/14 Aspirin [ASA -] 81 mg PO DAILY 05/20/17 Budesonide/Formeterol Fumarate [SYMBICORT 160/4.5mcg -] 1 inh PO BID 05/20/17 Ferrous Sulfate 325 mg PO DAILY 05/20/17 Hydralazine HCl 100 mg PO TID 05/20/17 Losartan Potassium [Cozaar -] 1,050 mg PO DAILY 05/20/17 Metolazone 10 mg PO DAILY 05/20/17 Metoprolol Succinate [Toprol Xl -] 50 mg PO DAILY 05/20/17 Paroxetine HCl 10 mg PO DAILY 05/20/17 Ranexa 500 mg PO DAILY 05/20/17 Sevelamer Carbonate [Renvela -] 1 tab PO TID 05/20/17 Family Disease History - Family Disease History Family History: Unable to Obtain Family Disease History: Diabetes: Sister Review of Systems - Review of Systems Constitutional: reports: Malaise, Weakness HENT: denies: Difficult Swallowing, Epistaxis, Throat Pain Neck: reports: No Symptoms Cardiovascular: denies: Chest Pain, Palpitations, Shortness of Breath Gastrointestinal: reports: Diarrhea, Vomiting, Vomiting Blood Neurological: reports: No Symptoms Physical Exam Vital Signs: Vital Signs Temperature 98 F 10/26/18 13:59 Pulse Rate 78 10/26/18 13:59 Respiratory Rate 18 10/26/18 13:59 Blood Pressure 136/72 10/26/18 13:59 O2 Sat by Pulse Oximetry (%) 99 10/26/18 09:00 Constitutional: Yes: No Distress, Anxious Eyes: Yes: Conjunctiva Clear HENT: Yes: Normocephalic Neck: Yes: Trachea Midline Cardiovascular: Yes: Regular Rate and Rhythm, S1, S2 Respiratory: Yes: CTA Bilaterally, Diminished Gastrointestinal: Yes: Normal Bowel Sounds, Soft, Distention Renal/: No: CVA Tenderness - Left, CVA Tenderness - Right Labs: CBC, BMP 10/26/18 05:30 10/26/18 05:30 Problem List - Problems (1) Coffee ground emesis Code(s): K92.0 - HEMATEMESIS (2) ESRD (end stage renal disease) Code(s): N18.6 - END STAGE RENAL DISEASE (3) Hypertensive urgency Code(s): I10 - ESSENTIAL (PRIMARY) HYPERTENSION (4) BPH (benign prostatic hyperplasia) Code(s): N40.0 - BENIGN PROSTATIC HYPERPLASIA WITHOUT LOWER URINRY TRACT SYMP (5) Diabetes mellitus Code(s): E11.9 - TYPE 2 DIABETES MELLITUS WITHOUT COMPLICATIONS Assessment/Plan RD, on HD admitted with intractable vomiting, coffee ground emesis and feeling week. His BP was extremely elevated, which eventually settled to acceptable levels. He did not complete his dialysis yesterday. PLAN: GI w/u as scheduled. No indication for significant blood loss. BP and vital signs in acceptable range. Will give dialysis today. Orders reviewed with the RN. He will get his regular HD tomorrow. Thanks again. Almaz Marr MD
[2018-10-26 16:24] LABS: HEMATOCRIT 38.7 % (35.4-49); HEMOGLOBIN 13.1 GM/dL (11.7-16.9); MCH 33.2 pg (25.7-33.7); MCHC 33.8 g/dl (32.0-35.9); MEAN PLT VOLUME 8.8 fl (7.5-11.1); PLATELET COUNT 187 K/MM3 (134-434); RBC 3.94 M/mm3 (4.00-5.60); RDW 15.3 % (11.9-15.9); WHITE BLOOD COUNT 9.3 K/mm3 (4.0-10.0)
--- NOTE | 2018-10-26 17:01 | DS ---
Physical Exam: SUBJECTIVE: Patient seen and examined. no recurrent episodes of vomiting. was advanced to clears and was tolerating. currently receiving HD. denies CP, SOB< fever, chills, N/V/C/D. admits to NSAID usage (not excessive but several hes taking over the past few weeks) as well on steroids recently for ashtma exacerbation and was on steroids a month ago. OBJECTIVE: Vital Signs Period Temp Pulse Resp BP Sys/Reyes Pulse Ox Last 24 Hr 98 F-98.6 F 69-85 16-18 91-162/52-90 97-99 PHYSICAL EXAM GENERAL: The patient is awake, alert, and fully oriented, in no acute distress. HEAD: Normal with no signs of trauma. EYES: PERRL, extraocular movements intact, sclera anicteric, conjunctiva clear. ENT: Ears normal, nares patent, oropharynx clear without exudates, moist mucous membranes. NECK: Trachea midline, full range of motion, supple. LUNGS: Breath sounds equal, clear to auscultation bilaterally, no wheezes, no crackles, no accessory muscle use. HEART: Regular rate and rhythm, S1, S2 + murmur, no rub or gallop. ABDOMEN: Soft, nontender, nondistended, normoactive bowel sounds, no guarding, no rebound, no hepatosplenomegaly, no masses. EXTREMITIES: 2+ pulses, warm, well-perfused, no edema. NEUROLOGICAL: Cranial nerves II through XII grossly intact. Normal speech, gait not observed. PSYCH: Normal mood, normal affect. SKIN: Warm, dry, normal turgor, no rashes or lesions noted. LABS Laboratory Results - last 24 hr 10/25/18 10/26/18 10/26/18 21:06 05:30 05:30 WBC 9.1 RBC 3.98 L Hgb 13.3 Hct 38.6 MCV 97.1 H MCH 33.4 MCHC 34.4 RDW 15.4 Plt Count 200 MPV 8.6 Absolute Neuts (auto) 7.3 Neutrophils % 81.0 Lymphocytes % 11.3 D Monocytes % 6.2 Eosinophils % 0.6 D Basophils % 0.9 Nucleated RBC % 0 Sodium 133 L Potassium 4.4 Chloride 95 L Carbon Dioxide 30 Anion Gap 9 BUN 31 H Creatinine 7.3 H Creat Clearance w eGFR 7.69 POC Glucometer Random Glucose 173 H Calcium 9.6 Stool Occult Blood Negative 10/26/18 10/26/18 10/26/18 05:47 11:28 16:03 WBC 9.3 RBC 3.94 L Hgb 13.1 Hct 38.7 MCV 98.0 H MCH 33.2 MCHC 33.8 RDW 15.3 Plt Count 187 MPV 8.8 Absolute Neuts (auto) Neutrophils % Lymphocytes % Monocytes % Eosinophils % Basophils % Nucleated RBC % Sodium Potassium Chloride Carbon Dioxide Anion Gap BUN Creatinine Creat Clearance w eGFR POC Glucometer 146 191 Random Glucose Calcium Stool Occult Blood 10/26/18 16:47 WBC RBC Hgb Hct MCV MCH MCHC RDW Plt Count MPV Absolute Neuts (auto) Neutrophils % Lymphocytes % Monocytes % Eosinophils % Basophils % Nucleated RBC % Sodium Potassium Chloride Carbon Dioxide Anion Gap BUN Creatinine Creat Clearance w eGFR POC Glucometer 137 Random Glucose Calcium Stool Occult Blood HOSPITAL COURSE: Date of Admission:10/25/18 Date of Discharge: 10/26/18 admitting diagnosis: coffee ground emesis Pre hospital course 58 year old male ESRD on HD brought in for episode of coffee ground emesis which occured on 10/25 during his hemodialysis session and concern for GI bleed. Patient reported multiple episodes of nonbloody vomiting and diarrhea since this past tuesday and thinks it may be from food poisoning. Denied any recent travels. He has history of PUD s/p EGD about 10 years ago. He admitted to using NSAIDS recently for lower extremity pain. Subsequent hospital course Admitted for suspected hemetemsis which has been having for over a week. cbc done here and stable. Had recent EGD done by GI service as outpatient. tolerating diet. will d/c home with gi outpatient follow up. called [facility] pharmacy to verify home medications. was significantly different than was charted initially. Minutes to complete discharge: 40 Discharge Summary Reason For Visit: HYPERTENSIVE URGENCY/COFFEE GROUND EMESIS/NAUSEA Current Active Problems Coffee ground emesis (Acute) ESRD (end stage renal disease) (Acute) Hypertensive urgency (Acute) Nausea & vomiting (Acute) Condition: Improved - Instructions Diet, Activity, Other Instructions: You came to the hospital because of vomiting and concern for blood Your blood counts were checked and stable and you were able to tolerate food slowly advance your diet as tolerated Avoid taking any NSAIDS (ibuprofen, aleive, motrin, naproxen, etc) Follow up wtih GI in 2 weeks for further testing Resume your home medications Follow up wtih your primary care doctor in 1 week resume dialysis per your usual days Return to the hospital if your symptoms return or if you develop shortness of breath or chest pain Referrals: Armando Vanegas MD [Staff Physician] - Disposition: HOME - Home Medications Comprehensive Discharge Medication List: Ambulatory Orders Pantoprazole Sodium [Protonix -] 40 mg PO ONCE #20 tablet.ec 01/25/14 Metoprolol Succinate [Toprol Xl -] 50 mg PO DAILY 05/20/17 Sevelamer Carbonate [Renvela -] 2 tab PO TID 05/20/17 Albuterol Sulfate Inhaler - [Ventolin HFA Inhaler -] 1 - 2 inh PO Q4H PRN Atorvastatin Calcium [Lipitor] 20 mg PO HS 10/26/18 Insulin Glargine,Hum.rec.anlog [Basaglar Kwikpen U-100] 20 units SQ BID Zolpidem Tartrate [Ambien] 10 mg PO HS 10/26/18 This patient is new to me today: Yes Date on this admission: 10/26/18 Emergency Visit: Yes ED Registration Date: 10/25/18 Care time: The patient presented to the Emergency Department on the above date and was hospitalized for further evaluation of their emergent condition. Critical Care patient: No - Discharge Referral Referred to [facility] No
[2018-10-27 12:20] LABS: HBSAG SCREEN Negative (Negative); HEP A AB, IGM Negative (Negative); HEP B CORE AB, TOT Negative (Negative)
== END 2018-10-26 18:34 | disposition home or self-care (01) | DRG 253 ==
LOC: JER 14:06 → JERBED 21:35 → J4W 10-26 01:05
PROVIDERS: ADMIT Internal Medicine; ATTEND Internal Medicine
PROC: 5A1D70Z Performance of Urinary Filtration, Intermittent, Less than 6 Hours Per Day (ICD-10-PCS; principal; 2018-10-26)
DX: K92.2 Gastrointestinal hemorrhage, unspecified (principal); K92.0 Hematemesis; I16.0 Hypertensive urgency; I12.0 Hypertensive chronic kidney disease with stage 5 chronic kidney disease or end stage renal disease; E11.22 Type 2 diabetes mellitus with diabetic chronic kidney disease; N18.6 End stage renal disease; K21.9 Gastro-esophageal reflux disease without esophagitis; N40.0 Benign prostatic hyperplasia without lower urinary tract symptoms; E11.65 Type 2 diabetes mellitus with hyperglycemia; G47.00 Insomnia, unspecified; D72.829 Elevated white blood cell count, unspecified; B19.20 Unspecified viral hepatitis C without hepatic coma; Z79.1 Long term (current) use of non-steroidal anti-inflammatories (NSAID); Z99.2 Dependence on renal dialysis; Z87.11 Personal history of peptic ulcer disease
CPT/HCPCS: 36415; 70450-TC; 71045-TC-FY; 74174-TC; 80048; 80053; 82272; 82550; 82962; 83690; 84484; 85025; 85027; 85610; 86704; 86706; 86708; 86803; 86850; 86900; 86901; 87340; 93005; 93010; 99283-25

== ENCOUNTER 2018-12-20 19:03 | Inpatient (IN) | payer OTHER ==
--- NOTE | 2018-12-20 19:34 | PDOC ---
History of Present Illness - General Stated Complaint: VOMITING Time Seen by Provider: 12/20/18 19:31 - History of Present Illness Initial Comments: The pt is a 58M w/ a history of HTN, HLD, GERD, DM, ESRD (iHD MWF) who presents s/p iHD today for evaluation of 6 episodes of NBNB vomiting. He denies any new/ suspicious foods, fevers/chills, chest pain, trouble breathing, diarrhea, blood in his stool. He endorses epigastric abdominal pain that is intermittent, non- radiating, cramping, and not alleviated by anything he can identify. Reports he is to also complete another round of HD tomorrow to remove additional volume. 12/20/18 19:35 Past History - Past Medical History Allergies/Adverse Reactions: Allergies Allergy/AdvReac Type Severity Reaction Status Date / Time amlodipine [From [facility]] Allergy Verified 10/25/18 14:12 Home Medications: Ambulatory Orders Pantoprazole Sodium [Protonix -] 40 mg PO ONCE #20 tablet.ec 01/25/14 Metoprolol Succinate [Toprol Xl -] 50 mg PO DAILY 05/20/17 Sevelamer Carbonate [Renvela -] 2 tab PO TID 05/20/17 Albuterol Sulfate Inhaler - [Ventolin HFA Inhaler -] 1 - 2 inh PO Q4H PRN Atorvastatin Calcium [Lipitor] 20 mg PO HS 10/26/18 Insulin Glargine,Hum.rec.anlog [Basaglar Kwikpen U-100] 20 units SQ BID Zolpidem Tartrate [Ambien] 10 mg PO HS 10/26/18 Hydralazine HCl 50 mg PO TID 12/20/18 Asthma: Yes Cancer: No Cardiac Disorders: No CVA: No COPD: No CHF: No Dementia: No Diabetes: Yes Dialysis: Yes GI Disorders: No Disorders: No HTN: Yes Hypercholesterolemia: No Liver Disease: Yes Seizures: No Thyroid Disease: No - Surgical History Abdominal Surgery: Yes (laceration) Appendectomy: No Cardiac Surgery: No Cholecystectomy: No Lung Surgery: No Neurologic Surgery: No Orthopedic Surgery: Yes (Bilateral lower leg fracture repair, pin placement) - Immunization History Immunization Up to Date: Yes - Suicide/Smoking/Psychosocial Hx Smoking History: Never smoked Have you smoked in the past 12 months: No If you are a former smoker, when did you quit?: 1989 'Breaking Loose' booklet given: 02/15/14 Hx Alcohol Use: No Drug/Substance Use Hx: No Substance Use Type: None Hx Substance Use Treatment: No Review of Systems - Review of Systems Able to Perform ROS?: Yes Comments:: GENERAL/CONSTITUTIONAL: No fever or chills. No weakness HEAD, EYES, EARS, NOSE AND THROAT: No change in vision. No ear pain or discharge. No sore throat CARDIOVASCULAR: No chest pain or shortness of breath RESPIRATORY: Denies cough, hemoptysis GENITOURINARY: No dysuria, frequency, or change in urination MUSCULOSKELETAL: No joint or muscle swelling or pain. No neck or back pain SKIN: No rash NEUROLOGIC: No headache, vertigo, loss of consciousness, or change in strength/ sensation ENDOCRINE: No increased thirst. No abnormal weight change HEMATOLOGIC/LYMPHATIC: No anemia, easy bleeding, or history of blood clots ALLERGIC/IMMUNOLOGIC: No hives or skin allergy 12/20/18 19:34 Is the patient limited Macedonian proficient: No *Physical Exam - Vital Signs Vital Signs Temp Pulse Resp BP Pulse Ox 98.7 F 99 H 18 162/85 99 12/21/18 05:13 12/21/18 05:13 12/21/18 05:13 12/21/18 05:13 12/21/18 05:13 - Physical Exam Comments: GENERAL: Awake, alert, and oriented to person/place/time, in no acute distress HEAD: No signs of trauma, normocephalic, atraumatic EYES: PERRLA, EOMI, sclera anicteric, conjunctiva clear ENT: Hearing grossly normal, nares patent, oropharynx clear without exudates. No uvular deviation. Moist mucosa LUNGS: No distress, speaks full sentences, clear to auscultation bilaterally HEART: Regular rate and rhythm, normal S1 and S2, no murmurs appreciated, peripheral pulses normal and equal bilaterally ABDOMEN: Soft, epigastric TTP w/o rebound or guarding; +BS EXTREMITIES: RUE fistula w/ palpable thrill NEUROLOGICAL: Cranial nerves II through XII grossly intact. Normal speech, normal gait, no focal sensorimotor deficits SKIN: Warm, Dry 12/20/18 19:34 ED Treatment Course - LABORATORY CBC & Chemistry Diagram: 12/20/18 19:47 12/20/18 20:07 Medical Decision Making - Medical Decision Making The pt is a 58M w/ a history of ESRD on iHD, HTN, DM, who presents for evaluation of N/V and abdominal pain which started during HD today ED Course CMP, CBC, Lipase, Trop I ECG CXR, CT A&P, RUQ US s/p zofran by EMS Will give Reglan 10mg IV once Will give home anti-hypertensives, Losartan 50mg PO once and Hydralazine 50mg PO once 12/20/18 20:01 Lytes wnl Cr elevated but on iHD No anemia No leukocytosis Symptoms improved at this time 12/20/18 21:28 CT A&P and RUQ US w/o acute pathology Pt failed PO challenge. Pt with further emesis. 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
[2018-12-20] MEDS ORDERED: ONDANSETRON 4 MG/2 ML VIAL ONE ×2 (19:42→23:17)
[2018-12-20] MEDS ORDERED: ACETAMINOPHEN 1000 MG/100 ML VIAL (NON FORMULARY) IVPB ONE (19:47)
[2018-12-20] MEDS ORDERED: METOCLOPRAMIDE HCL INJECTION 10 MG/2 ML VIAL IVPUSH ONE (19:47)
[2018-12-20] MEDS ORDERED: METOCLOPRAMIDE HCL INJECTION 10 MG/2 ML VIAL ONE (19:51)
[2018-12-20] MEDS ORDERED: ACETAMINOPHEN INJECTION 100 ML IVPB ONE (19:51)
[2018-12-20] MEDS ORDERED: LOSARTAN POTASSIUM 50 MG TABLET (FP) PO ONE (19:58)
[2018-12-20] MEDS ORDERED: hydrALAZINE HCL 50 MG TABLET (FP) PO ONE (19:58)
[2018-12-20 20:33] LABS: BASO % 0.7 % (0-2.0); EOS % 1.4 % (0-4.5); HEMATOCRIT 37.7 % (35.4-49); HEMOGLOBIN 12.6 GM/dL (11.7-16.9); LYMPH % 7.4 % (8-40); MCH 32.7 pg (25.7-33.7); MCHC 33.4 g/dl (32.0-35.9); MEAN CELL VOLUME 97.9 fl (80-96); MEAN PLT VOLUME 8.2 fl (7.5-11.1); MONO % 6.3 % (3.8-10.2); NEUT % 84.2 % (42.8-82.8); PLATELET COUNT 247 K/MM3 (134-434); RBC 3.86 M/mm3 (4.00-5.60); RDW 15.1 % (11.9-15.9); WHITE BLOOD COUNT 8.6 K/mm3 (4.0-10.0)
[2018-12-20 21:03] LABS: ALBUMIN 3.9 g/dl (3.4-5.0); BILIRUBIN,TOTAL 0.4 mg/dL (0.2-1); BLOOD UREA NITROGEN 13.3 mg/dL (7-18); CALCIUM 9.5 mg/dL (8.5-10.1); CREATININE 4.9 mg/dL (0.55-1.3); POTASSIUM 4.2 mmol/L (3.5-5.1); TOT PROT 7.7 g/dl (6.4-8.2)
[2018-12-20] MEDS ORDERED: hydrALAZINE HCL 25 MG TABLET (FP) ONE (21:59)
--- NOTE | 2018-12-20 22:36 | PDOC ---
Documentation entered by Emily Scott SCRIBE, acting as scribe for Demi Guzman DO. Demi Guzman DO: This documentation has been prepared by the Tyler colmenares Adrianna, SCRIBE, under my direction and personally reviewed by me in its entirety. I confirm that the documentation accurately reflects all work, treatment, procedures, and medical decision making performed by me. Attending Attestation - Resident Resident Name: [email or web address] - ED Attending Attestation I have performed the following: I have examined & evaluated the patient, The case was reviewed & discussed with the resident, I agree w/resident's findings & plan - HPI HPI: The patient is a 58 year old male with a significant past medical history of asthma , GERD, hypertension and ESRD, who presents to the ED [facility] for evaluation of nausea and vomit for a few hours. Patient was at dialysis earlier this morning he had 6 episodes of NBNB nausea and vomit. He did complete dialysis, but was hypertensive so he was sent to the ED for evaluation. EMS administered Zofran prior to arrival, but the patient is still nauseous in the ED. Allergies: Amlodipine Surgical History: Abdominal laceration repair, bilateral low leg fracture repair with pin placement Social History: None reported 12/20/18 20:11 - Physicial Exam PE: Agree with resident exam. 12/20/18 20:11 - Medical Decision Making EXAM#: TYPE/EXAM: RESULT: [id number] US/ABDOMEN US -LIMITED Abdomen ultrasound- Limited Clinical information given: evaluate right upper quadrant Impression: No sonographic evidence of cholelithiasis or acute cholecystitis. There is no definite biliary tract dilatation. Possible hepatic cirrhosis. Clinical/laboratory correlation is suggested. Right renal atrophy. Reported By: Marcus Coombs MD 12/20/18 21:32 EXAM#: TYPE/EXAM: RESULT: [id number] CT/ABDOMEN PELVIS CT W/O CONTR Abdomen and pelvis CT (without contrast) Clinical information given: abdominal pain, emesis Impression: No definite CT findings of acute pathology are identified. Possible hepatic cirrhosis. Stable borderline splenic size. Mild right renal atrophy. Reported By: Marcus Coombs MD 12/20/18 21:43 12/20/18 22:16 12/20/18 22:27 58-year-old male with nausea vomiting associated with dialysis Patient states he frequently has lack of appetite on days he has dialysis CT of the abdomen as well as right upper quadrant ultrasound showed no significant acute abnormalities Patient has tolerated by mouth and states he feels ready to go home He has an additional dialysis appointment set up already in the morning
[2018-12-20] MEDS ORDERED: ONDANSETRON 4 MG/2 ML VIAL IVPUSH ONE (22:43)
[2018-12-20] MEDS ORDERED: morphine CARPU-JECT 4 MG/1 ML DISP.SYRIN IVPUSH ONE (23:34)
--- NOTE | 2018-12-20 23:41 | HP ---
Admitting History and Physical - Primary Care Physician PCP: Dr Marr - Admission Chief Complaint: N/v s/p dialysis History of Present Illness: Pt is a 58 yo M w/ a PMHx of HTN, HLD, GERD, DM, ESRD (HD MWF) who presented today for evaluation of about 6 episodes of NBNB vomiting and RUQ abdominal pain radiating to his flank which occurred during his dialysis session today. Upon completing dialysis he was hypertensive with a systolic reading in the 200 s so they sent him for further evaluation. The patient states his BP typically runs in the low 200s. Today he notes he did not take his hydralazine but is typically compliant with his medications. Pt reports he occasionally feels nauseous after dialysis days but feels more unwell today than usual. The patient states he has very little urine output normally and denies dysuria or hematuria. He otherwise has no complaints and states that his dialysis center told him that he needs to return tomorrow (12/21) for another dialysis session- "to have more fluid removed". Pt denies sick contacts, fever, chills, diarrhea, constipation, chest pain, SOB, or any other complaints. Pt has needed dialysis for >10years he thinks related to HTN. Per pt his BP normally runs high up to 200s despite meds ED 218/105>>>177/88 Lipase-96 CTAP: Possible hepatic cirrhosis, stableborderline splenic size History Source: Patient, Medical Record - Past Medical History Cardiovascular: Yes: HTN, Hyperlipdemia Gastrointestinal: Yes: GERD Renal/: Yes: Renal Failure, BPH, Hemodialysis Endocrine: Yes: Diabetes Mellitus - Smoking History Smoking history: Never smoked Have you smoked in the past 12 months: No If you are a former smoker, when did you quit?: 1989 - Alcohol/Substance Use Hx Alcohol Use: No - Social History ADL: Independent History of Recent Travel: No Home Medications - Allergies Allergies/Adverse Reactions: Allergies Allergy/AdvReac Type Severity Reaction Status Date / Time amlodipine [From [facility]] Allergy Verified 10/25/18 14:12 - Home Medications Home Medications: Ambulatory Orders Metoprolol Succinate [Toprol Xl -] 50 mg PO DAILY 05/20/17 Sevelamer Carbonate [Renvela -] 2 tab PO TID 05/20/17 Albuterol Sulfate Inhaler - [Ventolin HFA Inhaler -] 1 - 2 inh PO Q4H PRN Atorvastatin Calcium [Lipitor] 20 mg PO HS 10/26/18 Insulin Glargine,Hum.rec.anlog [Basaglar Kwikpen U-100] 20 units SQ BID Zolpidem Tartrate [Ambien] 10 mg PO HS 10/26/18 Omeprazole 20 mg PO DAILY 12/21/18 Omeprazole 20 mg PO DAILY 12/21/18 Family Disease History - Family Disease History Family Disease History: Diabetes: Sister Review of Systems - Review of Systems Constitutional: denies: Chills, Fever Eyes: reports: No Symptoms HENT: reports: No Symptoms Neck: denies: Stiffness Cardiovascular: denies: Chest Pain, Edema, Palpitations, Shortness of Breath Respiratory: denies: Cough Gastrointestinal: reports: Abdominal Pain Genitourinary: denies: Burning, Dysuria, Flank Pain Musculoskeletal: denies: Back Pain Neurological: denies: Change in LOC, Confusion Physical Examination Vital Signs: Vital Signs Temperature 98.6 F 12/20/18 21:33 Pulse Rate 79 12/20/18 21:33 Respiratory Rate 15 12/20/18 20:00 Blood Pressure 177/88 H 12/20/18 21:33 O2 Sat by Pulse Oximetry (%) 100 12/20/18 21:33 Constitutional: Yes: Anxious Eyes: Yes: Conjunctiva Clear, EOM Intact. No: Sclera Icterus HENT: Yes: Atraumatic. No: Pharyngeal Erythema Neck: Yes: Supple Cardiovascular: Yes: S1, S2 Respiratory: Yes: CTA Bilaterally. No: Rales Gastrointestinal: Yes: Normal Bowel Sounds, Abdomen, Obese, Ascites, Distention , Tenderness ...Rectal Exam: Yes: Other (Declined) Musculoskeletal: No: Joint Stiffness, Joint Swelling Edema: No Peripheral Pulses WNL: Yes Neurological: Yes: Alert, Oriented, Cran Nerves II-XII Intact. No: Ataxia, Confusion, Dysarthria, Facial Droop, Pre-Existing Deficit ...Motor Strength: WNL Psychiatric: Yes: Alert, Oriented Labs: CBC, BMP 12/20/18 19:47 12/20/18 20:07 Imaging - Results Cat Scan: Report Reviewed Assessment/Plan Ambulatory Orders Pantoprazole Sodium [Protonix -] 40 mg PO ONCE #20 tablet.ec 01/25/14 Metoprolol Succinate [Toprol Xl -] 50 mg PO DAILY 05/20/17 Sevelamer Carbonate [Renvela -] 2 tab PO TID 05/20/17 Albuterol Sulfate Inhaler - [Ventolin HFA Inhaler -] 1 - 2 inh PO Q4H PRN Atorvastatin Calcium [Lipitor] 20 mg PO HS 10/26/18 Insulin Glargine,Hum.rec.anlog [Basaglar Kwikpen U-100] 20 units SQ BID Zolpidem Tartrate [Ambien] 10 mg PO HS 10/26/18 Hydralazine HCl 50 mg PO TID 12/20/18 Current Medications Albuterol Sulfate (Ventolin Hfa Inhaler -) 1 puff IH Q4H PRN PRN Reason: WHEEZING Atorvastatin Calcium (Lipitor -) 20 mg PO HS ANCELMO Hydralazine HCl (Apresoline -) 50 mg PO TID ANCELMO Insulin Aspart (Novolog Vial Sliding Scale -) 1 vial SQ Q4H [facility]; Protocol Last Admin: 12/21/18 03:30 Dose: 2 units Insulin Detemir (Levemir Vial) 20 units SQ BID@0700,2200 ANCELMO Metoclopramide HCl (Reglan Injection -) 10 mg IVPB Q8H-IV ANCELMO Last Admin: 12/21/18 02:00 Dose: 10 mg Metoprolol Succinate (Toprol Xl -) 50 mg PO DAILY ANCELMO Pantoprazole Sodium (Protonix Iv) 40 mg IVPUSH DAILY ANCELMO Sevelamer Carbonate (Renvela -) 1,600 mg PO TIDCM ANCELMO Zolpidem Tartrate (Ambien -) 10 mg PO HS PRN PRN Reason: INSOMNIA Assessment/Plan: Pt is a 58 yo M w/ a PMHx of HTN, HLD, GERD, DM, ESRD (iHD MWF) who presented to today for evaluation of ~6 episodes of NBNB vomiting and R sided abdominal pain radiating to his flank which occurred during his dialysis session today. #N/vomiting and R sided abdominal pain s/p dialysis CTAP without acute pathology, pt with cirrhosis DM pt with prior hx of n/v Could be in setting of DM gastropathy reglan, protonix Repeat EKG in am- prolonged QTC GI consult #HTN Pt's BP elevated in ED, no new chestpain, or SOB Received BP meds Cont BP meds Monitor #HLD On home lipitor Could hold in setting of RUQ abd pain Monitor #GERD Cont iv protonix #DM ISS BGM Cont basal insulin ESRD (iHD MWF) Had a dialysis session on Tuesday Per pt was asked to return for repeat dialysis today Nephro consult NPO for now Monitor electrolytes, replete as needed No standing fluids Med surg Visit type - Emergency Visit Emergency Visit: Yes ED Registration Date: 12/21/18 Care time: The patient presented to the Emergency Department on the above date and was hospitalized for further evaluation of their emergent condition. - New Patient This patient is new to me today: Yes Date on this admission: 12/20/18 - Critical Care Critical Care patient: No
--- NOTE | 2018-12-21 00:03 | PN ---
Teaching Attending Note Name of Resident: Cristine Kirby ATTENDING PHYSICIAN STATEMENT I saw and evaluated the patient. I reviewed the resident's note and discussed the case with the resident. I agree with the resident's findings and plan as documented. SUBJECTIVE: Patient is a 58 year old man with a significant past medical history of asthma , GERD, hypertension and ESRD on hemodialysis, who presents to the ER with nausea and vomiting for a few hours. Patient was at his Hemdialysis center earlier this morning and had 6 episodes of NBNB vomiting. He did complete dialysis, but was hypertensive so he was sent to the ER for evaluation. EMS administered Zofran prior to arrival, but the patient is still nauseous in the ER. Also had associated lower abdominal pain, but denies fever, chills, diarrhea , headache, photophobia, SOB, chest pain or dysuria. No recent sick contacts, travel or consumption of unusual/street food. OBJECTIVE: Alert Vital Signs Period Temp Pulse Resp BP Sys/Reyes Pulse Ox Last 24 Hr 98.2 F-98.6 F 69-92 15-20 177-218/87-105 97-100 HEENT: No Jaundice, eye redness or discharge, PERRLA, EOMI. Normocephalic, atraumatic. External ears are normal and hearing is grossly intact. No nasal discharge. Neck: Supple, nontender. No palpable adenopathy or thyromegaly. No JVD Chest: Good effort. Clear to auscultation and percussion. Heart: Regular. No S3, rub or murmur Abdomen: Not distended, soft, right lower quadrant and flank tenderness and no HSM. No rebound or guarding. Normal bowel sounds. Ext: Peripheral pulses intact. No leg edema. Right arm AVF. Skin: Warm and dry. No petechiae, rash or ecchymosis. Neuro: Alert. Oriented x3. CN 2-12 grossly intact. Sensation grossly intact in all four extremities and DTR are symmetric. Psych: Appropriate mood and affect. Good insight. Current Medications Generic Name Dose Route Start Last Admin Trade Name Freq PRN Reason Stop Dose Admin Albuterol Sulfate 1 puff 12/21/18 01:08 Ventolin Hfa Inhaler - IH Q4H PRN WHEEZING Atorvastatin Calcium 20 mg 12/21/18 22:00 Lipitor - PO HS ANCELMO Hydralazine HCl 50 mg 12/21/18 06:00 Apresoline - PO TID ACNELMO Insulin Aspart 1 vial 12/21/18 02:00 12/21/18 03:30 Novolog Vial Sliding Scale - SQ 2 units Q4H ANCELMO Administration Protocol Insulin Detemir 20 units 12/21/18 07:00 Levemir Vial SQ BID@0700,2200 [facility] Metoclopramide HCl 10 mg 12/21/18 01:15 12/21/18 02:00 Reglan Injection - IVPB 10 mg Q8H-IV ANCELMO Administration Metoprolol Succinate 50 mg 12/21/18 10:00 Toprol Xl - PO DAILY ANCLEMO Pantoprazole Sodium 40 mg 12/21/18 10:00 Protonix Iv IVPUSH DAILY ANCELMO Sevelamer Carbonate 1,600 mg 12/21/18 08:00 Renvela - PO TIDCM ANCELMO Zolpidem Tartrate 10 mg 12/21/18 22:00 Ambien - PO HS PRN INSOMNIA Home Medications Medication Instructions Recorded Pantoprazole Sodium [Protonix -] 40 mg PO ONCE #20 tablet.ec 01/25/14 Metoprolol Succinate [Toprol Xl -] 50 mg PO DAILY 05/20/17 Sevelamer Carbonate [Renvela -] 2 tab PO TID 05/20/17 Albuterol Sulfate Inhaler - 1 - 2 inh PO Q4H PRN 10/26/18 [Ventolin HFA Inhaler -] Atorvastatin Calcium [Lipitor] 20 mg PO HS 10/26/18 Insulin Glargine,Hum.rec.anlog 20 units SQ BID 10/26/18 [Basaglar Kwikpen U-100] Zolpidem Tartrate [Ambien] 10 mg PO HS 10/26/18 Hydralazine HCl 50 mg PO TID 12/20/18 Abnormal Lab Results 12/20/18 12/20/18 19:47 20:07 RBC 3.86 L MCV 97.9 H Neutrophils % 84.2 H Lymphocytes % 7.4 L D Chloride 95 L Creatinine 4.9 H Random Glucose 155 H ASSESSMENT AND PLAN: 1. Diabetic gastropathy?/Uncontrolled hypertension - Etiology of his symptoms is unclear. May be related to diabetic gastropathy or uncontrolled hypertension. Possible hepatic cirrhosis was the only significant abnormality noted on CT scan of abdomen/pelvis and sonogram. No acute abnormality on CXR. EKG showed NSR with no significant ST-T wave changes. He got IV hydralazine, Reglan, Morphine, Zofran as well as Losartan in the ER. He felt better and was tolerating oral intake while in the ER. Will get urinalysis, continue gentle hydration, IV Protonix, IV Reglan PRN and consult GI. Will restart suitable outpatient antihypertensive drugs and revise regimen to ensure good BP control. Nonpharmacologic measures to control hypertension like weight loss, salt restriction and exercise discussed. Consult nephrology to arrange for hemodialysis. 2. DM For now, we will hold the home diabetes drugs and implement sliding scale insulin regimen. Provide comprehensive diabetes care with patient teaching and counseling about the importance of adherence to prescribed diabetes regimen, euglycemia, eye care and foot care. 3. DVT prophylaxis - Heparin 5000u sq tid. 4. Advance directives - Full code
[2018-12-21] MEDS ORDERED: MORPHINE SULFATE 2 MG/ML VIAL ONE (00:06)
[2018-12-21] MEDS ORDERED: ALBUTEROL SO4 8 GM HFA INHALER IH PRN (01:08)
[2018-12-21] MEDS: METOCLOPRAMIDE HCL INJECTION 10 MG/2 ML VIAL IVPB SCH ×3 (02:00→17:21)
[2018-12-21] MEDS ORDERED: METOCLOPRAMIDE HCL INJECTION 10 MG/2 ML VIAL ONE (02:58)
[2018-12-21] MEDS ORDERED: INSULIN (NOVOLOG) ASPART 100 UNITS/ML 10ML VIAL ONE (03:22)
[2018-12-21] MEDS ORDERED: hydrALAZINE HCL 20 MG/ML VIAL IVPUSH ONE (03:28)
[2018-12-21] MEDS ORDERED: hydrALAZINE HCL 20 MG/ML VIAL ONE (03:29)
[2018-12-21] MEDS: INSULIN SLIDING SCALE (NOVOLOG) 1 VIAL SQ SCH ×5 (03:30→21:23)
[2018-12-21 05:13] VITALS: BMI 23.3
[2018-12-21] MEDS: hydrALAZINE HCL 50 MG TABLET (FP) PO SCH ×3 (05:44→21:23)
[2018-12-21] MEDS: INSULIN (LEVEMIR) 100 UNITS/ML UNITS SQ SCH ×2 (06:13→21:30)
--- NOTE | 2018-12-21 08:07 | CON.GI ---
Consult Consult Specialty:: GI Referred by:: Dr Cristine Kirby Reason for Consultation:: Abdominal pain with nausea/vomiting - History of Present Illness History of Present Illness: Patient is a 58 y/o male with past medical history of ESRD on HD, HTN, HLD, GERD. Patient presented to ER with complaints of vomiting and abdominal pain that started in dialysis yesterday. Patient states he experienced non-bloody, brown colored vomiting accompanied with heartburn and intermittent, burning generalized abdominal pain. Patient states he was unable to keep food or liquids down. Abdominal CT Scan and US done and both show possible hepatic cirrhosis. Labs in ER show no LFT elevation. Patient denies dysphagia, diarrhea, blood in stool, melena, or abnormal weight loss. - History Source History Provided By: Patient Limitations to Obtaining History: No Limitations - Past Medical History Cardio/Vascular: Yes: HTN, Hyperlipdemia Gastrointestinal: Yes: GERD Renal/: Yes: Renal Failure, BPH, Hemodialysis Endocrine: Yes: Diabetes Mellitus - Alcohol/Substance Use Hx Alcohol Use: No - Smoking History Smoking history: Never smoked Have you smoked in the past 12 months: No If you are a former smoker, when did you quit?: 1989 - Social History Usual Living Arrangement: Alone ADL: Independent History of Recent Travel: No Home Medications - Allergies Allergies/Adverse Reactions: Allergies Allergy/AdvReac Type Severity Reaction Status Date / Time amlodipine [From [facility]] Allergy Verified 10/25/18 14:12 - Home Medications Home Medications: Ambulatory Orders Metoprolol Succinate [Toprol Xl -] 50 mg PO DAILY 05/20/17 Sevelamer Carbonate [Renvela -] 2 tab PO TID 05/20/17 Albuterol Sulfate Inhaler - [Ventolin HFA Inhaler -] 1 - 2 inh PO Q4H PRN Atorvastatin Calcium [Lipitor] 20 mg PO HS 10/26/18 Insulin Glargine,Hum.rec.anlog [Basaglar Kwikpen U-100] 20 units SQ BID Zolpidem Tartrate [Ambien] 10 mg PO HS 10/26/18 Omeprazole 20 mg PO DAILY 12/21/18 Omeprazole 20 mg PO DAILY 12/21/18 Family Disease History - Family Disease History Family Disease History: Diabetes: Sister Review of Systems - Review of Systems Constitutional: reports: Weakness Eyes: reports: No Symptoms HENT: reports: No Symptoms Neck: reports: No Symptoms Cardiovascular: reports: No Symptoms Respiratory: reports: Cough Gastrointestinal: reports: Abdominal Pain, Constipation, Indigestion, Nausea, Vomiting Genitourinary: reports: No Symptoms Breasts: reports: No Symptoms Reported Musculoskeletal: reports: No Symptoms Integumentary: reports: No Symptoms Neurological: reports: No Symptoms Endocrine: reports: No Symptoms Hematology/Lymphatic: reports: No Symptoms Psychiatric: reports: No Symptoms Physical Exam-GI Vital Signs: Vital Signs Temperature 98.7 F 12/21/18 05:13 Pulse Rate 99 H 12/21/18 05:13 Respiratory Rate 18 12/21/18 06:17 Blood Pressure 162/85 12/21/18 05:13 O2 Sat by Pulse Oximetry (%) 99 12/21/18 06:17 Constitutional: Yes: No Distress, Calm Eyes: Yes: Conjunctiva Clear HENT: Yes: Atraumatic Cardiovascular: Yes: Regular Rate and Rhythm Respiratory: Yes: Regular, Wheezes Gastrointestinal Inspection: Yes: WNL. No: Ascites, Distention, Hernia, Scars, Other ...Auscultate: Yes: Normoactive Bowel Sounds. No: Hyperactive Bowel Sounds, Hypoactive Bowel Sounds, No Bowel Sounds, Other ...Palpate: Yes: Soft, Tenderness (diffuse). No: Firm/Rigid, Guarding, Hepatomegaly, Mass, Pulsatile Mass, Splenomegaly, Tenderness, Epigastium, Tenderness, Rebound, Other ...Percussion: Yes: Tympanitic. No: Dullness, Fluid Wave, Other Neurological: Yes: Alert, Oriented Psychiatric: Yes: Alert, Oriented Imaging - Results Cat Scan: Report Reviewed Ultrasound: Report Reviewed Problem List - Problems (1) Abdominal pain Assessment/Plan: r/o chronic cholecystitis R>HIDA scan Code(s): R10.9 - UNSPECIFIED ABDOMINAL PAIN (2) Nausea & vomiting Assessment/Plan: R> HIDA scan with ejection fraction >CT scan results reviewed Code(s): R11.2 - NAUSEA WITH VOMITING, UNSPECIFIED Qualifiers: Vomiting type: unspecified Vomiting Intractability: non-intractable Qualified Code(s): R11.2 - Nausea with vomiting, unspecified (3) GERD (gastroesophageal reflux disease) Assessment/Plan: >continue pantoprazole and reglan Code(s): K21.9 - GASTRO-ESOPHAGEAL REFLUX DISEASE WITHOUT ESOPHAGITIS (4) Cirrhosis Assessment/Plan: _history of Chronic hepatitis C R>AFP level Code(s): K74.60 - UNSPECIFIED CIRRHOSIS OF LIVER
[2018-12-21 08:16] LABS: BASO % 0.2 % (0-2.0); EOS % 0.3 % (0-4.5); HEMATOCRIT 39.4 % (35.4-49); HEMOGLOBIN 13.3 GM/dL (11.7-16.9); LYMPH % 5.9 % (8-40); MCH 32.7 pg (25.7-33.7); MCHC 33.7 g/dl (32.0-35.9); MEAN CELL VOLUME 97.2 fl (80-96); MEAN PLT VOLUME 8.1 fl (7.5-11.1); MONO % 5.7 % (3.8-10.2); NEUT % 87.9 % (42.8-82.8); PLATELET COUNT 221 K/MM3 (134-434); RBC 4.05 M/mm3 (4.00-5.60); RDW 14.8 % (11.9-15.9); WHITE BLOOD COUNT 11.6 K/mm3 (4.0-10.0)
[2018-12-21 08:31] LABS: INR 1.13 (0.83-1.09); PROTHROMBIN TIME (PATIENT) 13.4 SEC (9.7-13.0)
[2018-12-21 08:34] LABS: ACTIVATED PTT 30.8 SECONDS (25.2-36.5)
[2018-12-21 08:37] LABS: BILIRUBIN,TOTAL 0.6 mg/dL (0.2-1); BLOOD UREA NITROGEN 22.6 mg/dL (7-18); CALCIUM 9.4 mg/dL (8.5-10.1); CREATININE 6.2 mg/dL (0.55-1.3); MAGNESIUM 2.4 mg/dL (1.8-2.4); POTASSIUM 4.1 mmol/L (3.5-5.1); TOT PROT 7.7 g/dl (6.4-8.2)
[2018-12-21] MEDS: SEVELAMER CARBONATE 800 MG TAB (FP) PO SCH ×3 (08:54→17:21)
[2018-12-21] MEDS: PANTOPRAZOLE SODIUM 40 MG VIAL IVPUSH SCH (09:29)
--- NOTE | 2018-12-21 12:24 | PN ---
Physical Exam: SUBJECTIVE: Patient seen and examined at bedside. No further n/v, no events overnight. OBJECTIVE: Vital Signs Period Temp Pulse Resp BP Sys/Reyes Pulse Ox Last 24 Hr 98.2 F-98.7 F 69-100 15-20 151-218/82-105 97-100 GENERAL: A&Ox3, NAD HEENT: NC/AT, PERRLA, EOMI, MMM NECK: Trachea midline, full range of motion, supple. LUNGS: CTA b/l HEART: tachycardic, regular, no m/r/g ABDOMEN: +bs, soft, moderate diffuse tenderness, mild distention EXTREMITIES: 2+ pulses, warm, well-perfused, no edema. 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 SKIN: Warm, dry, normal turgor, no rashes or lesions noted Laboratory Results - last 24 hr 12/20/18 12/20/18 12/20/18 19:47 20:07 20:07 WBC 8.6 RBC 3.86 L Hgb 12.6 Hct 37.7 MCV 97.9 H MCH 32.7 MCHC 33.4 RDW 15.1 Plt Count 247 D MPV 8.2 Absolute Neuts (auto) 7.3 Neutrophils % 84.2 H Lymphocytes % 7.4 L D Monocytes % 6.3 Eosinophils % 1.4 D Basophils % 0.7 Nucleated RBC % 0 PT with INR INR PTT (Actin FS) Sodium 136 Potassium 4.2 Chloride 95 L Carbon Dioxide 32 Anion Gap 9 BUN 13.3 Creatinine 4.9 H Est GFR (CKD-EPI)AfAm 13.82 Est GFR (CKD-EPI)NonAf 11.92 POC Glucometer Random Glucose 155 H Calcium 9.5 Phosphorus Magnesium Total Bilirubin 0.4 AST 18 ALT 16 Alkaline Phosphatase 90 Troponin I 0.02 Total Protein 7.7 Albumin 3.9 Lipase 96 TSH 12/21/18 12/21/18 12/21/18 03:16 05:45 07:45 WBC 11.6 H RBC 4.05 Hgb 13.3 Hct 39.4 MCV 97.2 H MCH 32.7 MCHC 33.7 RDW 14.8 Plt Count 221 MPV 8.1 Absolute Neuts (auto) 10.2 H Neutrophils % 87.9 H Lymphocytes % 5.9 L D Monocytes % 5.7 Eosinophils % 0.3 Basophils % 0.2 Nucleated RBC % 0 PT with INR INR PTT (Actin FS) Sodium Potassium Chloride Carbon Dioxide Anion Gap BUN Creatinine Est GFR (CKD-EPI)AfAm Est GFR (CKD-EPI)NonAf POC Glucometer 156 110 Random Glucose Calcium Phosphorus Magnesium Total Bilirubin AST ALT Alkaline Phosphatase Troponin I Total Protein Albumin Lipase TSH 12/21/18 12/21/18 12/21/18 07:45 07:45 09:27 WBC RBC Hgb Hct MCV MCH MCHC RDW Plt Count MPV Absolute Neuts (auto) Neutrophils % Lymphocytes % Monocytes % Eosinophils % Basophils % Nucleated RBC % PT with INR 13.40 H INR 1.13 H PTT (Actin FS) 30.8 Sodium 135 L Potassium 4.1 Chloride 96 L Carbon Dioxide 28 Anion Gap 11 BUN 22.6 H Creatinine 6.2 H Est GFR (CKD-EPI)AfAm 10.40 Est GFR (CKD-EPI)NonAf 8.97 POC Glucometer 170 Random Glucose 146 H Calcium 9.4 Phosphorus 3.0 Magnesium 2.4 Total Bilirubin 0.6 AST 16 ALT 16 Alkaline Phosphatase 88 Troponin I Total Protein 7.7 Albumin 4.0 Lipase TSH 4.41 H Active Medications Generic Name Dose Route Start Last Admin Trade Name Freq PRN Reason Stop Dose Admin Albuterol Sulfate 1 puff 12/21/18 01:08 Ventolin Hfa Inhaler - IH Q4H PRN WHEEZING Atorvastatin Calcium 20 mg 12/21/18 22:00 Lipitor - PO HS ANCELMO Hydralazine HCl 50 mg 12/21/18 06:00 12/21/18 05:44 Apresoline - PO 50 mg TID ANCELMO Administration Insulin Aspart 1 vial 12/21/18 02:00 12/21/18 09:28 Novolog Vial Sliding Scale - SQ Not Given Q4H [facility] Protocol Insulin Detemir 20 units 12/21/18 07:00 12/21/18 06:13 Levemir Vial SQ Not Given BID@0700,2200 [facility] Metoclopramide HCl 10 mg 12/21/18 01:15 12/21/18 09:31 Reglan Injection - IVPB 10 mg Q8H-IV ANCELMO Administration Metoprolol Succinate 50 mg 12/21/18 10:00 Toprol Xl - PO DAILY ANCELMO Pantoprazole Sodium 40 mg 12/21/18 10:00 12/21/18 09:29 Protonix Iv IVPUSH 40 mg DAILY ANCELMO Administration Sevelamer Carbonate 1,600 mg 12/21/18 08:00 12/21/18 08:54 Renvela - PO Not Given TIDCM ANCELMO Zolpidem Tartrate 10 mg 12/21/18 22:00 Ambien - PO HS PRN INSOMNIA ASSESSMENT/PLAN: 58 y/o M w/ PMHx HTN, HLD, GERD, DM, ESRD MWF p/w 6 episodes NBNB emesis, abd pain, in HTN urgency/emergency #?diabetic gastropathy vs hepatobiliary disease -IV reglan -IV PTX -GI consulted -as of 10/2018, +HepC Ab, -HepC RNA -CT a/p and US: possible cirrhosis -restarting full liquid #HTN urgency/emergency -presentation BP 218/105-->162/85 -cont hydralazine, Toprol #ESRD -nephrology consulted -HD as per nephro #DM -BGM, SSI, Levemir #FEN -no IVF -monitor and correct -full liquid diet #PPx -heparin sq -IV PTX #code -full #dispo -med/surg Visit type - Emergency Visit Emergency Visit: No - New Patient This patient is new to me today: Yes Date on this admission: 12/21/18 - Critical Care Critical Care patient: No
--- NOTE | 2018-12-21 12:30 | EKG ---
Test Reason : Blood Pressure : / mmHG Vent. Rate : 078 BPM Atrial Rate : 078 BPM P-R Int : 176 ms QRS Dur : 086 ms QT Int : 416 ms P-R-T Axes : 084 081 079 degrees QTc Int : 474 ms NORMAL SINUS RHYTHM NORMAL ECG WHEN COMPARED WITH ECG OF 25-OCT-2018 14:39, NONSPECIFIC T WAVE ABNORMALITY NOW EVIDENT IN LATERAL LEADS Confirmed by ABELINO HAYDEN, RON ([id number]) on 12/21/2018 12:30:23 PM Referred By: Confirmed By:RON ROCA MD
--- NOTE | 2018-12-21 12:30 | EKG ---
Test Reason : Blood Pressure : / mmHG Vent. Rate : 082 BPM Atrial Rate : 082 BPM P-R Int : 166 ms QRS Dur : 090 ms QT Int : 408 ms P-R-T Axes : 070 054 061 degrees QTc Int : 476 ms SINUS RHYTHM WITH PREMATURE ATRIAL COMPLEXES NONSPECIFIC T WAVE ABNORMALITY PROLONGED QT ABNORMAL ECG WHEN COMPARED WITH ECG OF 20-DEC-2018 19:43, PREMATURE ATRIAL COMPLEXES ARE NOW PRESENT Confirmed by ABELINO HAYDEN, RON ([id number]) on 12/21/2018 12:29:58 PM Referred By: Confirmed By:RON ROCA MD
--- NOTE | 2018-12-21 13:40 | CONSULT ---
Consult - text type - Consultation Consultation Note: Renal consult for ESRD on HD This is a 58 year old male with hx of ESRD on HD (MWF), hypertension, hyperlipidemia, DM who presented today with nausea and vomiting and abd pain following dialysis. Pt seen and examined at the bedside. Abd pain is now resolved. No further N/V occurring. Was able to eat breakfast. Needed reglan for nasuea. No chest pain, fever, chills. No diarrhea. BP was also very high during dialysis yesterday. No KEBEDE, confusion or lethargy. PMhx: as above Allergies: NKDA Family Hx: NC Social Hx: No T/A/D ROS: as per HPI Home Medications Medication Instructions Recorded Metoprolol Succinate [Toprol Xl -] 50 mg PO DAILY 05/20/17 Sevelamer Carbonate [Renvela -] 2 tab PO TID 05/20/17 Albuterol Sulfate Inhaler - 1 - 2 inh PO Q4H PRN 10/26/18 [Ventolin HFA Inhaler -] Atorvastatin Calcium [Lipitor] 20 mg PO HS 10/26/18 Insulin Glargine,Hum.rec.anlog 20 units SQ BID 10/26/18 [Basaglar Kwikpen U-100] Zolpidem Tartrate [Ambien] 10 mg PO HS 10/26/18 Omeprazole 20 mg PO DAILY 12/21/18 Omeprazole 20 mg PO DAILY 12/21/18 Vital Signs Temperature 98.7 F 12/21/18 05:13 Pulse Rate 99 H 12/21/18 05:13 Respiratory Rate 18 12/21/18 06:17 Blood Pressure 162/85 12/21/18 05:13 O2 Sat by Pulse Oximetry (%) 99 12/21/18 06:17 Intake & Output 12/18/18 12/19/18 12/20/18 12/21/18 23:59 23:59 23:59 23:59 Weight 67.585 kg 65.589 kg NAD awake and alert neck supple, no JVD RRR, no M/R CTA soft NT/ND no LE edema CBC, BMP 12/21/18 07:45 12/21/18 07:45 Laboratory Tests 12/20/18 12/21/18 20:07 07:45 Calcium 9.4 Phosphorus 3.0 Magnesium 2.4 AST 16 ALT 16 Albumin 4[address] of Abd/Pelvis - no bile duck or gallbladder pathology. Possible cirrhosis. No kidney stones. EKG - SR with PAC CXR - clear lungs Current Medications Albuterol Sulfate (Ventolin Hfa Inhaler -) 1 puff IH Q4H PRN PRN Reason: WHEEZING Atorvastatin Calcium (Lipitor -) 20 mg PO HS [facility] Heparin Sodium (Porcine) (Heparin -) 5,000 unit SQ TID [facility] Hydralazine HCl (Apresoline -) 50 mg PO TID [facility] Last Admin: 12/21/18 05:44 Dose: 50 mg Sodium Chloride (Normal Saline -) 250 mls @ 3,000 mls/hr IV PRN PRN PRN Reason: Hypotension during Dialysis Stop: 12/22/18 13:50 Insulin Aspart (Novolog Vial Sliding Scale -) 1 vial SQ Q4H [facility]; Protocol Last Admin: 12/21/18 09:28 Dose: Not Given Insulin Detemir (Levemir Vial) 20 units SQ BID@0700,2200 [facility] Last Admin: 12/21/18 06:13 Dose: Not Given Metoclopramide HCl (Reglan Injection -) 10 mg IVPB Q8H-IV [facility] Last Admin: 12/21/18 09:31 Dose: 10 mg Metoprolol Succinate (Toprol Xl -) 50 mg PO DAILY [facility] Last Admin: 12/21/18 12:22 Dose: 50 mg Pantoprazole Sodium (Protonix Iv) 40 mg IVPUSH DAILY [facility] Last Admin: 12/21/18 09:29 Dose: 40 mg Sevelamer Carbonate (Renvela -) 1,600 mg PO TIDCM [facility] Last Admin: 12/21/18 12:23 Dose: 1,600 mg Zolpidem Tartrate (Ambien -) 10 mg PO HS PRN PRN Reason: INSOMNIA 58 year old male with hx of ESRD on HD (MWF), hypertension, hyperlipidemia, DM who presented today with nausea and vomiting and abd pain following dialysis. #Nausea and vomiting with RUQ pain(no gallbladder or billiary pathology on imaging studies) #ESRD on HD #Hypertension #DM #Hyperlipidemia Etiology of abd pain unclear, CT showed no overt pathology. ? gastroenteritis will plan for isolated UF today as pt feels fluid overloaded regular dialysis to be done tomorrow fi pt is able to tolerate meals may consider discharge High BP during dialysis likely related to nausea trend BP following dialysis, can consider addition of Losartan if BP still not controlled well. Figueroa Sorensen DO
[2018-12-21] MEDS ORDERED: SODIUM CHLORIDE 250 ML IV PRN ×3 (13:50→14:00)
[2018-12-21] MEDS: HEPARIN NA (PORCINE) 5,000 UNITS/ML 1ML VIAL SQ SCH ×2 (16:32→21:23)
--- NOTE | 2018-12-21 18:04 | PN ---
Teaching Attending Note Name of Resident: Joaquin Seth ATTENDING PHYSICIAN STATEMENT I saw and evaluated the patient. I reviewed the resident's note and discussed the case with the resident. I agree with the resident's findings and plan as documented. SUBJECTIVE: Patient is feeling better with no acute distress. OBJECTIVE: Vital Signs Temperature 98.8 F 12/21/18 14:30 Pulse Rate 85 12/21/18 16:36 Respiratory Rate 18 12/21/18 16:36 Blood Pressure 123/61 12/21/18 16:36 O2 Sat by Pulse Oximetry (%) 99 12/21/18 09:00 Initial Vital Signs Temp Pulse Resp BP Pulse Ox 98.2 F 69 20 197/101 H 97 12/20/18 19:04 12/20/18 19:04 12/20/18 19:04 12/20/18 19:04 12/20/18 19:04 GENERAL: A&Ox3, NAD HEENT: NC/AT, PERRLA, EOMI, MMM NECK: Trachea midline, full range of motion, supple. LUNGS: CTA b/l HEART: RRR, regular, S1s2 positive, ABDOMEN: +bs, soft, NT, EXTREMITIES: 2+ pulses, warm, well-perfused, no edema. NEUROLOGICAL: CN 2-12 grossly intact PSYCH: Normal mood, normal affect. SKIN: Warm, dry, normal turgor, no rashes or lesions noted CBCD WBC 11.6 K/mm3 (4.0-10.0) H 12/21/18 07:45 RBC 4.05 M/mm3 (4.00-5.60) 12/21/18 07:45 Hgb 13.3 GM/dL (11.7-16.9) 12/21/18 07:45 Hct 39.4 % (35.4-49) 12/21/18 07:45 MCV 97.2 fl (80-96) H 12/21/18 07:45 MCHC 33.7 g/dl (32.0-35.9) 12/21/18 07:45 RDW 14.8 % (11.9-15.9) 12/21/18 07:45 Plt Count 221 K/MM3 (134-434) 12/21/18 07:45 MPV 8.1 fl (7.5-11.1) 12/21/18 07:45 CMP Sodium 135 mmol/L (136-145) L 12/21/18 07:45 Potassium 4.1 mmol/L (3.5-5.1) 12/21/18 07:45 Chloride 96 mmol/L (98-107) L 12/21/18 07:45 Carbon Dioxide 28 mmol/L (21-32) 12/21/18 07:45 Anion Gap 11 MMOL/L (8-16) 12/21/18 07:45 BUN 22.6 mg/dL (7-18) H 12/21/18 07:45 Creatinine 6.2 mg/dL (0.55-1.3) H 12/21/18 07:45 Random Glucose 146 mg/dL (74-106) H 12/21/18 07:45 Calcium 9.4 mg/dL (8.5-10.1) 12/21/18 07:45 Total Bilirubin 0.6 mg/dL (0.2-1) 12/21/18 07:45 AST 16 U/L (15-37) 12/21/18 07:45 ALT 16 U/L (13-61) 12/21/18 07:45 Alkaline Phosphatase 88 U/L (45-117) 12/21/18 07:45 Total Protein 7.7 g/dl (6.4-8.2) 12/21/18 07:45 Albumin 4.0 g/dl (3.4-5.0) 12/21/18 07:45 CARDIAC ENZYMES Troponin I 0.02 ng/ml (0.00-0.05) 12/20/18 20:07 Current Medications Generic Name Dose Route Start Last Admin Trade Name Freq PRN Reason Stop Dose Admin Albuterol Sulfate 1 puff 12/21/18 01:08 Ventolin Hfa Inhaler - IH Q4H PRN WHEEZING Atorvastatin Calcium 20 mg 12/21/18 22:00 Lipitor - PO HS [facility] Heparin Sodium (Porcine) 5,000 unit 12/21/18 14:00 12/21/18 16:32 Heparin - SQ 5,000 unit TID [facility] Administration Heparin Sodium (Porcine) 300 unit 12/22/18 08:00 Heparin - IVPUSH 12/22/18 08:01 ONCE ONE Heparin Sodium (Porcine) 300 unit 12/22/18 09:00 Heparin - IVPUSH 12/22/18 11:01 Q1H [facility] Hydralazine HCl 50 mg 12/21/18 06:00 12/21/18 16:32 Apresoline - PO Not Given TID [facility] Sodium Chloride 250 mls @ 3,000 mls/hr 12/21/18 13:50 Normal Saline - IV 12/22/18 13:50 PRN PRN Hypotension during Dialysis Sodium Chloride 250 mls @ 3,000 mls/hr 12/21/18 13:59 Normal Saline - IV 12/22/18 13:59 PRN PRN Hypotension during Dialysis Sodium Chloride 250 mls @ 3,000 mls/hr 12/21/18 14:00 Normal Saline - IV 12/22/18 14:00 PRN PRN Hypotension during Dialysis Insulin Aspart 1 vial 12/21/18 22:00 Novolog Vial Sliding Scale - SQ ACHS [facility] Protocol Insulin Detemir 20 units 12/21/18 07:00 12/21/18 06:13 Levemir Vial SQ Not Given BID@0700,2200 [facility] Metoclopramide HCl 10 mg 12/21/18 01:15 12/21/18 17:21 Reglan Injection - IVPB 10 mg Q8H-IV [facility] Administration Metoprolol Succinate 50 mg 12/21/18 10:00 12/21/18 12:22 Toprol Xl - PO 50 mg DAILY [facility] Administration Pantoprazole Sodium 40 mg 12/21/18 10:00 12/21/18 09:29 Protonix Iv IVPUSH 40 mg DAILY [facility] Administration Sevelamer Carbonate 1,600 mg 12/21/18 08:00 12/21/18 17:21 Renvela - PO 1,600 mg TIDCM [facility] Administration Zolpidem Tartrate 10 mg 12/21/18 22:00 Ambien - PO HS PRN INSOMNIA Home Medications Medication Instructions Recorded Metoprolol Succinate [Toprol Xl -] 50 mg PO DAILY 05/20/17 Sevelamer Carbonate [Renvela -] 2 tab PO TID 05/20/17 Albuterol Sulfate Inhaler - 1 - 2 inh PO Q4H PRN 10/26/18 [Ventolin HFA Inhaler -] Atorvastatin Calcium [Lipitor] 20 mg PO HS 10/26/18 Insulin Glargine,Hum.rec.anlog 20 units SQ BID 10/26/18 [Robert Arce U-100] Zolpidem Tartrate [Ambien] 10 mg PO HS 10/26/18 Omeprazole 20 mg PO DAILY 12/21/18 Omeprazole 20 mg PO DAILY 12/21/18 CT a/p and US: possible cirrhosis ASSESSMENT AND PLAN: Patient is a 58 y/o M with PMHx HTN, HLD, GERD, DM, ESRD MWF p/w 6 episodes of emesis, abd pain, patient was found to have HTN emergency. #HTN emergency improving now; BP 218/105-->162/85, CONTINUE cont hydralazine, Toprol # ABDominal pain with possible diabetic gastropathy/ hepatobiliary diseaseas of 10/2018, +HepC Ab, -HepC RNA -IV reglan, PTX, GI consulted #ESRD on HD nephrology consulted #T2DM continue BGM, SSI, Levemir DVT px: heparin sq #full code
[2018-12-21] MEDS ORDERED: ACETAMINOPHEN 325 MG TABLET (FP) PO ONE (21:00)
[2018-12-21] MEDS: ATORVASTATIN CA 20 MG TABLET (FP) PO SCH (21:23)
[2018-12-21] MEDS: ZOLPIDEM TARTRATE 5 MG TABLET PO PRN (22:26)
[2018-12-22] MEDS: METOCLOPRAMIDE HCL INJECTION 10 MG/2 ML VIAL IVPUSH SCH ×3 (03:02→17:25)
[2018-12-22] MEDS: hydrALAZINE HCL 50 MG TABLET (FP) PO SCH ×3 (06:41→21:22)
[2018-12-22] MEDS: HEPARIN NA (PORCINE) 5,000 UNITS/ML 1ML VIAL SQ SCH ×3 (06:41→21:23)
[2018-12-22] MEDS: INSULIN SLIDING SCALE (NOVOLOG) 1 VIAL SQ SCH ×4 (06:53→21:23)
[2018-12-22] MEDS: INSULIN (LEVEMIR) 100 UNITS/ML UNITS SQ SCH ×2 (06:53→21:23)
[2018-12-22 07:49] LABS: BASO % 0.5 % (0-2.0); EOS % 1.8 % (0-4.5); HEMATOCRIT 40.3 % (35.4-49); HEMOGLOBIN 13.4 GM/dL (11.7-16.9); LYMPH % 14.4 % (8-40); MCH 32.7 pg (25.7-33.7); MCHC 33.3 g/dl (32.0-35.9); MEAN CELL VOLUME 98.2 fl (80-96); MEAN PLT VOLUME 8.3 fl (7.5-11.1); MONO % 9.1 % (3.8-10.2); NEUT % 74.2 % (42.8-82.8); PLATELET COUNT 244 K/MM3 (134-434); RDW 15.3 % (11.9-15.9)
[2018-12-22 08:12] LABS: BILIRUBIN,TOTAL 0.7 mg/dL (0.2-1); BLOOD UREA NITROGEN 32.3 mg/dL (7-18); CALCIUM 9.8 mg/dL (8.5-10.1); CREATININE 7.2 mg/dL (0.55-1.3); MAGNESIUM 2.3 mg/dL (1.8-2.4); PHOSPHOROUS 4.2 mg/dL (2.5-4.9); POTASSIUM 4.4 mmol/L (3.5-5.1)
--- NOTE | 2018-12-22 08:44 | PN ---
Progress Note, Physician Chief Complaint: GI FOLLOW UP NOTE Patient examined and case discussed with Dr Vanegas Patient states feeling better, denies abdominal pain or nausea/vomiting. Denies dysphagia, heartburn, diarrhea, constipation, blood in stool or melena. - Current Medication List Current Medications: Active Medications Albuterol Sulfate (Ventolin Hfa Inhaler -) 1 puff IH Q4H PRN PRN Reason: WHEEZING Atorvastatin Calcium (Lipitor -) 20 mg PO HS [facility] Last Admin: 12/21/18 21:23 Dose: 20 mg Heparin Sodium (Porcine) (Heparin -) 5,000 unit SQ TID [facility] Last Admin: 12/22/18 06:41 Dose: 5,000 unit Heparin Sodium (Porcine) (Heparin -) 300 unit IVPUSH ONCE ONE Stop: 12/22/18 08:01 Heparin Sodium (Porcine) (Heparin -) 300 unit IVPUSH Q1H [facility] Stop: 12/22/18 11:01 Hydralazine HCl (Apresoline -) 50 mg PO TID [facility] Last Admin: 12/22/18 06:41 Dose: 50 mg Sodium Chloride (Normal Saline -) 250 mls @ 3,000 mls/hr IV PRN PRN PRN Reason: Hypotension during Dialysis Stop: 12/22/18 13:50 Sodium Chloride (Normal Saline -) 250 mls @ 3,000 mls/hr IV PRN PRN PRN Reason: Hypotension during Dialysis Stop: 12/22/18 13:59 Sodium Chloride (Normal Saline -) 250 mls @ 3,000 mls/hr IV PRN PRN PRN Reason: Hypotension during Dialysis Stop: 12/22/18 14:00 Insulin Aspart (Novolog Vial Sliding Scale -) 1 vial SQ ACHS [facility]; Protocol Last Admin: 12/22/18 06:53 Dose: Not Given Insulin Detemir (Levemir Vial) 20 units SQ BID@0700,2200 [facility] Last Admin: 12/22/18 06:53 Dose: Not Given Metoclopramide HCl (Reglan Injection -) 10 mg IVPUSH Q8H-IV [facility] Last Admin: 12/22/18 03:02 Dose: Not Given Metoprolol Succinate (Toprol Xl -) 50 mg PO DAILY [facility] Last Admin: 12/21/18 12:22 Dose: 50 mg Pantoprazole Sodium (Protonix Iv) 40 mg IVPUSH DAILY [facility] Last Admin: 12/21/18 09:29 Dose: 40 mg Sevelamer Carbonate (Renvela -) 1,600 mg PO TIDCM [facility] Last Admin: 12/21/18 17:21 Dose: 1,600 mg Zolpidem Tartrate (Ambien -) 10 mg PO HS PRN PRN Reason: INSOMNIA Last Admin: 12/21/18 22:26 Dose: 10 mg - Objective Vital Signs: Vital Signs Temperature 98.6 F 12/22/18 06:00 Pulse Rate 81 12/22/18 06:00 Respiratory Rate 12/22/18 06:00 Blood Pressure 151/81 12/22/18 06:00 O2 Sat by Pulse Oximetry (%) 99 12/21/18 21:00 Constitutional: Yes: No Distress, Calm Eyes: Yes: Conjunctiva Clear HENT: Yes: Atraumatic Cardiovascular: Yes: Regular Rate and Rhythm Respiratory: Yes: Regular, CTA Bilaterally Gastrointestinal: Yes: Normal Bowel Sounds, Soft. No: WNL, Abdomen, Obese, Ascites, Distention, Hematemesis, Hemorrhoids, Hepatomegaly, Hernia, Hyperactive Bowel Sounds, Hypoactive Bowel Sounds, Melena, Palpable Mass, Pulsatile Mass, Rectal Bleeding, Splenomegaly, Tenderness, Tenderness, Epigastrium, Tenderness, Rebound, Vomiting, Other Neurological: Yes: Alert, Oriented Psychiatric: Yes: Alert, Oriented Labs: CBC, BMP 12/22/18 06:45 12/22/18 06:45 INR, PTT INR 1.13 (0.83-1.09) H 12/21/18 07:45 Problem List - Problems (1) Abdominal pain Assessment/Plan: R> HIDA scan with EF ordered >Hepatitis panel pending >LFTs wnl >Abdominal CT scan shows possible hepatic cirrhosis Code(s): R10.9 - UNSPECIFIED ABDOMINAL PAIN (2) Nausea & vomiting Assessment/Plan: >Reglan IVPB >tolerating full liquid diet Code(s): R11.2 - NAUSEA WITH VOMITING, UNSPECIFIED Qualifiers: Vomiting type: unspecified Vomiting Intractability: non-intractable Qualified Code(s): R11.2 - Nausea with vomiting, unspecified (3) GERD (gastroesophageal reflux disease) Assessment/Plan: >Pantoprazole daily Code(s): K21.9 - GASTRO-ESOPHAGEAL REFLUX DISEASE WITHOUT ESOPHAGITIS
[2018-12-22] MEDS: PANTOPRAZOLE SODIUM 40 MG VIAL IVPUSH SCH (10:15)
[2018-12-22] MEDS: SEVELAMER CARBONATE 800 MG TAB (FP) PO SCH ×3 (10:15→17:25)
--- NOTE | 2018-12-22 14:08 | PN ---
Progress Note (short form) - Note Progress Note: Renal follow up for ESRD on HD Pt seen and examined at the bedside awake and alert no acute complaints awaiting HIDA scan Vital Signs Temperature 99.5 F 12/22/18 09:00 Pulse Rate 85 12/22/18 09:00 Respiratory Rate 20 12/22/18 09:00 Blood Pressure 117/65 12/22/18 09:00 O2 Sat by Pulse Oximetry (%) 99 12/21/18 21:00 Intake & Output 12/19/18 12/20/18 12/21/18 12/22/18 23:59 23:59 23:59 23:59 Intake Total 475 200 Balance 475 200 Weight 67.585 kg 65.589 kg NAD awake and alert neck supple, no JVD RRR, no M/R CTA soft NT/ND no LE edema CBC, BMP 12/22/18 06:45 12/22/18 06:45 CT of Abd/Pelvis - no bile duck or gallbladder pathology. Possible cirrhosis. No kidney stones. EKG - SR with PAC CXR - clear lungs Current Medications Albuterol Sulfate (Ventolin Hfa Inhaler -) 1 puff IH Q4H PRN PRN Reason: WHEEZING Atorvastatin Calcium (Lipitor -) 20 mg PO HS [facility] Last Admin: 12/21/18 21:23 Dose: 20 mg Heparin Sodium (Porcine) (Heparin -) 5,000 unit SQ TID [facility] Last Admin: 12/22/18 06:41 Dose: 5,000 unit Heparin Sodium (Porcine) (Heparin -) 300 unit IVPUSH ONCE ONE Stop: 12/22/18 08:01 Heparin Sodium (Porcine) (Heparin -) 300 unit IVPUSH Q1H [facility] Stop: 12/22/18 11:01 Hydralazine HCl (Apresoline -) 50 mg PO TID [facility] Last Admin: 12/22/18 06:41 Dose: 50 mg Sodium Chloride (Normal Saline -) 250 mls @ 3,000 mls/hr IV PRN PRN PRN Reason: Hypotension during Dialysis Stop: 12/22/18 13:50 Sodium Chloride (Normal Saline -) 250 mls @ 3,000 mls/hr IV PRN PRN PRN Reason: Hypotension during Dialysis Stop: 12/22/18 13:59 Sodium Chloride (Normal Saline -) 250 mls @ 3,000 mls/hr IV PRN PRN PRN Reason: Hypotension during Dialysis Stop: 12/22/18 14:00 Insulin Aspart (Novolog Vial Sliding Scale -) 1 vial SQ ACHS [facility]; Protocol Last Admin: 12/22/18 13:45 Dose: Not Given Insulin Detemir (Levemir Vial) 20 units SQ BID@0700,2200 [facility] Last Admin: 12/22/18 06:53 Dose: Not Given Metoclopramide HCl (Reglan Injection -) 10 mg IVPUSH Q8H-IV [facility] Last Admin: 12/22/18 10:16 Dose: 10 mg Metoprolol Succinate (Toprol Xl -) 50 mg PO DAILY [facility] Last Admin: 12/22/18 10:15 Dose: 50 mg Pantoprazole Sodium (Protonix Iv) 40 mg IVPUSH DAILY [facility] Last Admin: 12/22/18 10:15 Dose: 40 mg Sevelamer Carbonate (Renvela -) 1,600 mg PO TIDCM [facility] Last Admin: 12/22/18 13:46 Dose: Not Given Zolpidem Tartrate (Ambien -) 10 mg PO HS PRN PRN Reason: INSOMNIA Last Admin: 12/21/18 22:26 Dose: 10 mg 58 year old male with hx of ESRD on HD (MWF), hypertension, hyperlipidemia, DM who presented today with nausea and vomiting and abd pain following dialysis. #Nausea and vomiting with RUQ pain(no gallbladder or billiary pathology on imaging studies) #ESRD on HD #Hypertension #DM #Hyperlipidemia Etiology of abd pain unclear, CT showed no overt pathology.For HIDA scan today. GI following for HD today with UF as tolerated BP is WNL today discharge planning as per Primary if on GI pathology found Figueroa Sorensen DO
--- NOTE | 2018-12-22 14:40 | PN ---
Physical Exam: SUBJECTIVE: Patient seen and examined at bedside. No acute events overnight. OBJECTIVE: Vital Signs Period Temp Pulse Resp BP Sys/Reyes Pulse Ox Last 24 Hr 98 F-99.5 F 74-92 18-20 106-168/61-88 99 GENERAL: NAD HEAD: Normal with no signs of trauma. EYES: EOMI Sclera Clear ENT: MMM LUNGS: CTAB HEART: RRR S1S2 ABDOMEN: NDNT No HSM . EXTREMITIES: No CCE. AV fistula right upper extremity. PSYCH: Normal mood, normal affect. SKIN: Warm, dry, normal turgor, no rashes or lesions noted Laboratory Results - last 24 hr 12/21/18 12/21/18 12/22/18 16:30 21:20 06:40 WBC RBC Hgb Hct MCV MCH MCHC RDW Plt Count MPV Absolute Neuts (auto) Neutrophils % Lymphocytes % Monocytes % Eosinophils % Basophils % Nucleated RBC % Sodium Potassium Chloride Carbon Dioxide Anion Gap BUN Creatinine Est GFR (CKD-EPI)AfAm Est GFR (CKD-EPI)NonAf POC Glucometer 182 176 191 Random Glucose Calcium Phosphorus Magnesium Total Bilirubin AST ALT Alkaline Phosphatase Total Protein Albumin 12/22/18 12/22/18 12/22/18 06:45 06:45 11:15 WBC 8.0 RBC 4.10 Hgb 13.4 Hct 40.3 MCV 98.2 H MCH 32.7 MCHC 33.3 RDW 15.3 Plt Count 244 MPV 8.3 Absolute Neuts (auto) 5.9 Neutrophils % 74.2 Lymphocytes % 14.4 D Monocytes % 9.1 Eosinophils % 1.8 D Basophils % 0.5 Nucleated RBC % 0 Sodium 135 L Potassium 4.4 Chloride 94 L Carbon Dioxide 29 Anion Gap 12 BUN 32.3 H Creatinine 7.2 H Est GFR (CKD-EPI)AfAm 8.68 Est GFR (CKD-EPI)NonAf 7.49 POC Glucometer 190 Random Glucose 179 H Calcium 9.8 Phosphorus 4.2 Magnesium 2.3 Total Bilirubin 0.7 AST 18 ALT 19 Alkaline Phosphatase 86 Total Protein 8.0 Albumin 4.0 Active Medications Generic Name Dose Route Start Last Admin Trade Name Freq PRN Reason Stop Dose Admin Albuterol Sulfate 1 puff 12/21/18 01:08 Ventolin Hfa Inhaler - IH Q4H PRN WHEEZING Atorvastatin Calcium 20 mg 12/21/18 22:00 12/21/18 21:23 Lipitor - PO 20 mg HS [facility] Administration Heparin Sodium (Porcine) 5,000 unit 12/21/18 14:00 12/22/18 06:41 Heparin - SQ 5,000 unit TID [facility] Administration Heparin Sodium (Porcine) 300 unit 12/22/18 08:00 Heparin - IVPUSH 12/22/18 08:01 ONCE ONE Heparin Sodium (Porcine) 300 unit 12/22/18 09:00 Heparin - IVPUSH 12/22/18 11:01 Q1H [facility] Hydralazine HCl 50 mg 12/21/18 06:00 12/22/18 06:41 Apresoline - PO 50 mg TID [facility] Administration Sodium Chloride 250 mls @ 3,000 mls/hr 12/21/18 13:50 Normal Saline - IV 12/22/18 13:50 PRN PRN Hypotension during Dialysis Sodium Chloride 250 mls @ 3,000 mls/hr 12/21/18 13:59 Normal Saline - IV 12/22/18 13:59 PRN PRN Hypotension during Dialysis Sodium Chloride 250 mls @ 3,000 mls/hr 12/21/18 14:00 Normal Saline - IV 12/22/18 14:00 PRN PRN Hypotension during Dialysis Insulin Aspart 1 vial 12/21/18 22:00 12/22/18 13:45 Novolog Vial Sliding Scale - SQ Not Given ACHS [facility] Protocol Insulin Detemir 20 units 12/21/18 07:00 12/22/18 06:53 Levemir Vial SQ Not Given BID@0700,2200 [facility] Metoclopramide HCl 10 mg 12/21/18 18:35 12/22/18 10:16 Reglan Injection - IVPUSH 10 mg Q8H-IV [facility] Administration Metoprolol Succinate 50 mg 12/21/18 10:00 12/22/18 10:15 Toprol Xl - PO 50 mg DAILY [facility] Administration Pantoprazole Sodium 40 mg 12/21/18 10:00 12/22/18 10:15 Protonix Iv IVPUSH 40 mg DAILY [facility] Administration Sevelamer Carbonate 1,600 mg 12/21/18 08:00 12/22/18 13:46 Renvela - PO Not Given TIDCM [facility] Zolpidem Tartrate 10 mg 12/21/18 22:00 12/21/18 22:26 Ambien - PO 10 mg HS PRN Administration INSOMNIA ASSESSMENT/PLAN: 58 y/o M w/ PMHx HTN, HLD, GERD, DM, ESRD MWF p/w 6 episodes NBNB emesis, abd pain, in HTN urgency/emergency #?diabetic gastropathy vs hepatobiliary disease -IV reglan -IV PTX -GI consulted- Dr Vanegas. HIDA recommended -as of 10/2018, +HepC Ab, -HepC RNA -CT a/p and US: possible cirrhosis -restarting full liquid #HTN urgency/emergency -presentation BP 218/105. BP today WNL 12/22/2018 -cont hydralazine, Toprol #ESRD -nephrology Dr Sorensen on board. For HD today with UF as tolerated -HD as per nephro #DM -BGM, SSI, Levemir #FEN -no IVF -monitor and correct -full liquid diet #PPx -heparin sq -IV PTX #code -full #dispo -med/surg Visit type - Emergency Visit Emergency Visit: Yes ED Registration Date: 12/21/18 Care time: The patient presented to the Emergency Department on the above date and was hospitalized for further evaluation of their emergent condition. - New Patient This patient is new to me today: No - Critical Care Critical Care patient: No - Discharge Referral Referred to [facility] Med P.C.: No
--- NOTE | 2018-12-22 17:25 | PN ---
Teaching Attending Note Name of Resident: Farooq Severino ATTENDING PHYSICIAN STATEMENT I saw and evaluated the patient. I reviewed the resident's note and discussed the case with the resident. I agree with the resident's findings and plan as documented. SUBJECTIVE: Patient is comfortable with no acute distress, no nausea or vomiting. OBJECTIVE: Vital Signs Temperature 98.5 F 12/22/18 14:28 Pulse Rate 74 12/22/18 14:28 Respiratory Rate 20 12/22/18 14:28 Blood Pressure 117/88 12/22/18 14:28 O2 Sat by Pulse Oximetry (%) 99 12/22/18 09:00 GENERAL: AAOx3, NAD HEENT: NC/AT, PERRLA, EOMI, MMM NECK: Trachea midline, full range of motion, supple. LUNGS: CTA b/l HEART: RRR, regular, S1s2 positive, ABDOMEN: soft, positive for Bs , NT, EXTREMITIES: 2+ pulses, warm, well-perfused, no edema. NEUROLOGICAL: CN 2-12 grossly intact PSYCH: Normal mood, normal affect. SKIN: Warm, dry, good turgor, no rashes or lesions noted CBCD WBC 8.0 K/mm3 (4.0-10.0) 12/22/18 06:45 RBC 4.10 M/mm3 (4.00-5.60) 12/22/18 06:45 Hgb 13.4 GM/dL (11.7-16.9) 12/22/18 06:45 Hct 40.3 % (35.4-49) 12/22/18 06:45 MCV 98.2 fl (80-96) H 12/22/18 06:45 MCHC 33.3 g/dl (32.0-35.9) 12/22/18 06:45 RDW 15.3 % (11.9-15.9) 12/22/18 06:45 Plt Count 244 K/MM3 (134-434) 12/22/18 06:45 MPV 8.3 fl (7.5-11.1) 12/22/18 06:45 CMP Sodium 135 mmol/L (136-145) L 12/22/18 06:45 Potassium 4.4 mmol/L (3.5-5.1) 12/22/18 06:45 Chloride 94 mmol/L (98-107) L 12/22/18 06:45 Carbon Dioxide 29 mmol/L (21-32) 12/22/18 06:45 Anion Gap 12 MMOL/L (8-16) 12/22/18 06:45 BUN 32.3 mg/dL (7-18) H 12/22/18 06:45 Creatinine 7.2 mg/dL (0.55-1.3) H 12/22/18 06:45 Random Glucose 179 mg/dL (74-106) H 12/22/18 06:45 Calcium 9.8 mg/dL (8.5-10.1) 12/22/18 06:45 Total Bilirubin 0.7 mg/dL (0.2-1) 12/22/18 06:45 AST 18 U/L (15-37) 12/22/18 06:45 ALT 19 U/L (13-61) 12/22/18 06:45 Alkaline Phosphatase 86 U/L (45-117) 12/22/18 06:45 Total Protein 8.0 g/dl (6.4-8.2) 12/22/18 06:45 Albumin 4.0 g/dl (3.4-5.0) 12/22/18 06:45 CARDIAC ENZYMES Troponin I 0.02 ng/ml (0.00-0.05) 12/20/18 20:07 Current Medications Generic Name Dose Route Start Last Admin Trade Name Freq PRN Reason Stop Dose Admin Albuterol Sulfate 1 puff 12/21/18 01:08 Ventolin Hfa Inhaler - IH Q4H PRN WHEEZING Atorvastatin Calcium 20 mg 12/21/18 22:00 12/21/18 21:23 Lipitor - PO 20 mg HS ANCELMO Administration Heparin Sodium (Porcine) 5,000 unit 12/21/18 14:00 12/22/18 15:50 Heparin - SQ Not Given TID ANCELMO Heparin Sodium (Porcine) 300 unit 12/22/18 08:00 Heparin - IVPUSH 12/22/18 08:01 ONCE ONE Heparin Sodium (Porcine) 300 unit 12/22/18 09:00 Heparin - IVPUSH 12/22/18 11:01 Q1H ANCELMO Hydralazine HCl 50 mg 12/21/18 06:00 12/22/18 15:50 Apresoline - PO Not Given TID ANCELMO Sodium Chloride 250 mls @ 3,000 mls/hr 12/21/18 13:50 Normal Saline - IV 12/22/18 13:50 PRN PRN Hypotension during Dialysis Sodium Chloride 250 mls @ 3,000 mls/hr 12/21/18 13:59 Normal Saline - IV 12/22/18 13:59 PRN PRN Hypotension during Dialysis Sodium Chloride 250 mls @ 3,000 mls/hr 12/21/18 14:00 Normal Saline - IV 12/22/18 14:00 PRN PRN Hypotension during Dialysis Insulin Aspart 1 vial 12/21/18 22:00 12/22/18 13:45 Novolog Vial Sliding Scale - SQ Not Given ACHS ANCELMO Protocol Insulin Detemir 20 units 12/21/18 07:00 12/22/18 06:53 Levemir Vial SQ Not Given BID@0700,2200 ANCELMO Metoclopramide HCl 10 mg 12/21/18 18:35 12/22/18 10:16 Reglan Injection - IVPUSH 10 mg Q8H-IV ANCELMO Administration Metoprolol Succinate 50 mg 12/21/18 10:00 12/22/18 10:15 Toprol Xl - PO 50 mg DAILY ANCELMO Administration Pantoprazole Sodium 40 mg 12/21/18 10:00 12/22/18 10:15 Protonix Iv IVPUSH 40 mg DAILY ANCELMO Administration Sevelamer Carbonate 1,600 mg 12/21/18 08:00 12/22/18 13:46 Renvela - PO Not Given TIDCM ANCELMO Zolpidem Tartrate 10 mg 12/21/18 22:00 12/21/18 22:26 Ambien - PO 10 mg HS PRN Administration INSOMNIA Home Medications Medication Instructions Recorded Metoprolol Succinate [Toprol Xl -] 50 mg PO DAILY 05/20/17 Sevelamer Carbonate [Renvela -] 2 tab PO TID 05/20/17 Albuterol Sulfate Inhaler - 1 - 2 inh PO Q4H PRN 10/26/18 [Ventolin HFA Inhaler -] Atorvastatin Calcium [Lipitor] 20 mg PO HS 10/26/18 Insulin Glargine,Hum.rec.anlog 20 units SQ BID 10/26/18 [Basaglar Kwikpen U-100] Zolpidem Tartrate [Ambien] 10 mg PO HS 10/26/18 Omeprazole 20 mg PO DAILY 12/21/18 Omeprazole 20 mg PO DAILY 12/21/18 CT a/p and US: possible cirrhosis HIDA Scan : normal , no acute cholecystitis ASSESSMENT AND PLAN: Patient is a 58 y/o M with PMHx HTN, HLD, GERD, DM, ESRD MWF p/w 6 episodes of emesis, abd pain, patient was found to have HTN emergency. #HTN emergency improved: BP 218/105-->162/85--> 117/88, CONTINUE cont hydralazine, Toprol # Abdominal pain improved, HIDA scan negative. +HepC Ab, -HepC RNA #ESRD on HD nephrology appreciated, had HD today (MW) #T2DM continue BGM, SSI, [place], darwin patient home on home meds #full code
--- NOTE | 2018-12-22 17:48 | DS ---
Physical Exam: SUBJECTIVE: Patient seen and examined at bedside. No acute events overnight. OBJECTIVE: Vital Signs Period Temp Pulse Resp BP Sys/Reyes Pulse Ox Last 24 Hr 98 F-99.5 F 74-85 18-20 117-168/65-88 99-99 PHYSICAL EXAM GENERAL: NAD HEAD: Normal with no signs of trauma. EYES: EOMI Sclera Clear ENT: MMM LUNGS: CTAB HEART: RRR S1S2 ABDOMEN: NDNT No HSM . EXTREMITIES: No CCE. AV fistula right upper extremity. PSYCH: Normal mood, normal affect. SKIN: Warm, dry, normal turgor, no rashes or lesions noted LABS Laboratory Results - last 24 hr 12/21/18 12/22/18 12/22/18 21:20 06:40 06:45 WBC 8.0 RBC 4.10 Hgb 13.4 Hct 40.3 MCV 98.2 H MCH 32.7 MCHC 33.3 RDW 15.3 Plt Count 244 MPV 8.3 Absolute Neuts (auto) 5.9 Neutrophils % 74.2 Lymphocytes % 14.4 D Monocytes % 9.1 Eosinophils % 1.8 D Basophils % 0.5 Nucleated RBC % 0 Sodium Potassium Chloride Carbon Dioxide Anion Gap BUN Creatinine Est GFR (CKD-EPI)AfAm Est GFR (CKD-EPI)NonAf POC Glucometer 176 191 Random Glucose Calcium Phosphorus Magnesium Total Bilirubin AST ALT Alkaline Phosphatase Total Protein Albumin 12/22/18 12/22/18 06:45 11:15 WBC RBC Hgb Hct MCV MCH MCHC RDW Plt Count MPV Absolute Neuts (auto) Neutrophils % Lymphocytes % Monocytes % Eosinophils % Basophils % Nucleated RBC % Sodium 135 L Potassium 4.4 Chloride 94 L Carbon Dioxide 29 Anion Gap 12 BUN 32.3 H Creatinine 7.2 H Est GFR (CKD-EPI)AfAm 8.68 Est GFR (CKD-EPI)NonAf 7.49 POC Glucometer 190 Random Glucose 179 H Calcium 9.8 Phosphorus 4.2 Magnesium 2.3 Total Bilirubin 0.7 AST 18 ALT 19 Alkaline Phosphatase 86 Total Protein 8.0 Albumin 4.0 HOSPITAL COURSE: Date of Admission:12/21/18 58 y/o M w/ PMHx HTN, HLD, GERD, DM, ESRD MWF presented to [facility] due to 6 episodes NBNB emesis, abd pain, and found to have HTN urgency/emergency. Pt's BP upon admission to ED was 197/101. Pt was treated w/ Losartan, Hydralazine, and Toprol. Pt was placed on SSI as well Levemir for his Type 2 DM. Pt underwent a CTAP which did not reveal any acute pathology except for possible cirrhosis. Pt was evaluated by Gastroenterology who wanted to r/o chronic cholecystitis; a HIDA scan was ordered and performed which revealed an EF of 50 % and no acute pathology. Pt was also noted to have +HepC Ab, -HepC RNA. Pt underwent Dialysis as well during his stay. Pt discharged and informed to follow up with nephrology and advised to take his BP medications regularly as prescribed. Pt endorsed he had enough of his BP medications at home. Date of Discharge: 12/22/18 Minutes to complete discharge: 35 Discharge Summary Reason For Visit: DIABETES MELLITUS/NAUSEA AND VOMITING/END STAGE Current Active Problems Abdominal pain (Acute) Cirrhosis (Acute) Diabetes mellitus (Acute) ESRD (end stage renal disease) (Acute) Nausea & vomiting (Acute) Condition: Improved - Instructions Diet, Activity, Other Instructions: You presented to the hospital due to vomiting and abdominal pain which occurred during his dialysis session. You were found to have severely elevated blood pressure. Please follow up with your Technical Sales Director- Dr Almaz Marr this week. Please take all of your medications as previously prescribed. Please return to the emergency department immediately if you begin to experience chest pain, shortness of breath, dizziness, or any other abnormal symptom. Referrals: Almaz Marr MD [Staff Physician] - Disposition: HOME - Home Medications Comprehensive Discharge Medication List: Ambulatory Orders Metoprolol Succinate [Toprol XL -] 50 mg PO DAILY 05/20/17 Sevelamer Carbonate [Renvela -] 2 tab PO TID 05/20/17 Albuterol Sulfate Inhaler - [Ventolin HFA Inhaler -] 1 - 2 inh PO Q4H PRN Atorvastatin Calcium [Lipitor] 20 mg PO HS 10/26/18 Insulin Glargine,Hum.rec.anlog [Basaglar Kwikpen U-100] 20 units SQ BID Zolpidem Tartrate [Ambien] 10 mg PO HS 10/26/18 hydrALAZINE HCL [Apresoline -] 50 mg PO TID #90 tablet 12/22/18 This patient is new to me today: No Emergency Visit: Yes ED Registration Date: 12/21/18 Care time: The patient presented to the Emergency Department on the above date and was hospitalized for further evaluation of their emergent condition. Critical Care patient: No - Discharge Referral Referred to [facility] Med [facility].C.: No
[2018-12-22] MEDS ORDERED: HEPARIN NA (PORCINE) 5,000 UNITS/ML 1ML VIAL IVPUSH ONE (18:00)
[2018-12-22] MEDS: HEPARIN NA (PORCINE) 5,000 UNITS/ML 1ML VIAL IVPUSH SCH ×3 (18:25→20:08)
[2018-12-22] MEDS: ZOLPIDEM TARTRATE 5 MG TABLET PO PRN (21:22)
[2018-12-22] MEDS: ATORVASTATIN CA 20 MG TABLET (FP) PO SCH (21:22)
[2018-12-23] MEDS: METOCLOPRAMIDE HCL INJECTION 10 MG/2 ML VIAL IVPUSH SCH ×2 (03:00→10:28)
[2018-12-23] MEDS: INSULIN SLIDING SCALE (NOVOLOG) 1 VIAL SQ SCH ×2 (06:09→11:19)
[2018-12-23] MEDS: INSULIN (LEVEMIR) 100 UNITS/ML UNITS SQ SCH (06:09)
[2018-12-23] MEDS: HEPARIN NA (PORCINE) 5,000 UNITS/ML 1ML VIAL SQ SCH (06:09)
[2018-12-23] MEDS: hydrALAZINE HCL 50 MG TABLET (FP) PO SCH (07:00)
[2018-12-23 08:03] LABS: HEMATOCRIT 43.9 % (35.4-49); HEMOGLOBIN 14.8 GM/dL (11.7-16.9); MCH 33.1 pg (25.7-33.7); MCHC 33.7 g/dl (32.0-35.9); MEAN CELL VOLUME 98.1 fl (80-96); MEAN PLT VOLUME 8.2 fl (7.5-11.1); PLATELET COUNT 244 K/MM3 (134-434); RBC 4.48 M/mm3 (4.00-5.60); WHITE BLOOD COUNT 9.1 K/mm3 (4.0-10.0)
[2018-12-23 08:23] LABS: BLOOD UREA NITROGEN 21.8 mg/dL (7-18); CREATININE 5.5 mg/dL (0.55-1.3); MAGNESIUM 2.3 mg/dL (1.8-2.4); PHOSPHOROUS 3.1 mg/dL (2.5-4.9); POTASSIUM 3.9 mmol/L (3.5-5.1)
[2018-12-23] MEDS: SEVELAMER CARBONATE 800 MG TAB (FP) PO SCH (10:00)
[2018-12-23] MEDS: PANTOPRAZOLE SODIUM 40 MG VIAL IVPUSH SCH (10:28)
--- NOTE | 2018-12-23 10:59 | PN ---
Progress Note (short form) - Note Progress Note: Renal follow up for ESRD on HD Pt seen and examined at the bedside awake and alert no acute complaints Vital Signs Temperature 98.9 F 12/23/18 05:37 Pulse Rate 86 12/23/18 05:37 Respiratory Rate 20 12/23/18 05:37 Blood Pressure 101/45 L 12/23/18 05:37 O2 Sat by Pulse Oximetry (%) 99 12/22/18 21:00 Intake & Output 12/20/18 12/21/18 12/22/18 12/23/18 23:59 23:59 23:59 23:59 Intake Total 475 300 150 Balance 475 300 150 Weight 67.585 kg 65.589 kg 62.369 kg NAD awake and alert neck supple, no JVD RRR, no M/R CTA soft NT/ND no LE edema CBC, BMP 12/23/18 06:30 12/23/18 06:30 Current Medications Albuterol Sulfate (Ventolin Hfa Inhaler -) 1 puff IH Q4H PRN PRN Reason: WHEEZING Atorvastatin Calcium (Lipitor -) 20 mg PO HS [facility] Last Admin: 12/22/18 21:22 Dose: 20 mg Heparin Sodium (Porcine) (Heparin -) 5,000 unit SQ TID [facility] Last Admin: 12/23/18 06:09 Dose: 5,000 unit Hydralazine HCl (Apresoline -) 50 mg PO TID [facility] Last Admin: 12/23/18 07:00 Dose: Not Given Insulin Aspart (Novolog Vial Sliding Scale -) 1 vial SQ ACHS [facility]; Protocol Last Admin: 12/23/18 06:09 Dose: Not Given Insulin Detemir (Levemir Vial) 20 units SQ BID@0700,2200 [facility] Last Admin: 12/23/18 06:09 Dose: Not Given Metoclopramide HCl (Reglan Injection -) 10 mg IVPUSH Q8H-IV [facility] Last Admin: 12/23/18 10:28 Dose: 10 mg Metoprolol Succinate (Toprol Xl -) 50 mg PO DAILY [facility] Last Admin: 12/23/18 10:28 Dose: 50 mg Pantoprazole Sodium (Protonix Iv) 40 mg IVPUSH DAILY [facility] Last Admin: 12/23/18 10:28 Dose: 40 mg Sevelamer Carbonate (Renvela -) 1,600 mg PO TIDCM ANCELMO Last Admin: 12/23/18 10:00 Dose: 1,600 mg Zolpidem Tartrate (Ambien -) 10 mg PO HS PRN PRN Reason: INSOMNIA Last Admin: 12/22/18 21:22 Dose: [address] of Abd/Pelvis - no bile duck or gallbladder pathology. Possible cirrhosis. No kidney stones. EKG - SR with PAC CXR - clear lungs 58 year old male with hx of ESRD on HD (MWF), hypertension, hyperlipidemia, DM who presented today with nausea and vomiting and abd pain following dialysis. #Nausea and vomiting with RUQ pain(no gallbladder or billiary pathology on imaging studies) #ESRD on HD #Hypertension #DM #Hyperlipidemia s/p HD last night with UF of 2.5L no acute need for dialysis today HIDA scan negative for discharge today can resume dialysis as an outpatient on Tuesday. Figueroa Sorensen DO
[2018-12-23 11:53] VITALS: BP 139/80; PULSE 82; TEMP 98.4
[2018-12-25 15:12] LABS: HEP B CORE AB, TOT Negative (Negative)
== END 2018-12-23 12:37 | disposition home health service (06) | DRG 48 ==
LOC: JER 19:03 → JERBED 12-21 01:47 → J7W 12-21 04:44
PROVIDERS: ADMIT Internal Medicine; ATTEND Internal Medicine
PROC: 5A1D70Z Performance of Urinary Filtration, Intermittent, Less than 6 Hours Per Day (ICD-10-PCS; principal; 2018-12-21)
DX: E11.43 Type 2 diabetes mellitus with diabetic autonomic (poly)neuropathy (principal); E11.22 Type 2 diabetes mellitus with diabetic chronic kidney disease; I12.0 Hypertensive chronic kidney disease with stage 5 chronic kidney disease or end stage renal disease; N18.6 End stage renal disease; Z99.2 Dependence on renal dialysis; Z79.4 Long term (current) use of insulin; K21.9 Gastro-esophageal reflux disease without esophagitis; K74.60 Unspecified cirrhosis of liver; B18.2 Chronic viral hepatitis C; I16.1 Hypertensive emergency; K31.84 Gastroparesis
CPT/HCPCS: 36415; 71045-TC-FY; 74176-TC; 76705-TC; 78227-TC; 80048; 80053; 82962; 83690; 83735; 84100; 84443; 84484; 85025; 85027; 85610; 85730; 86704; 86706; 86803; 93005; 93010; 99285-25; A9537; J0131; J1644

== ENCOUNTER 2019-07-31 04:33 | Emergency (ER) | payer OTHER ==
[2019-07-31 05:36] VITALS: BP 152/65; PULSE 66; TEMP 98.4; BMI 20.4
--- NOTE | 2019-07-31 05:40 | PDOC ---
History of Present Illness - General Chief Complaint: Blood Sugar Problem Stated Complaint: BLOOD SUGAR PROBLEM/NAUSEA Time Seen by Provider: 07/31/19 05:39 History Source: Patient Exam Limitations: No Limitations - History of Present Illness Initial Comments: 07/31/19 05:39 59yo M pmh HTN, HLD, GERD, DM, ESRD (iHD MWF) presenting requesting insulin. Patient reports feeling nauseous, taking his last 10 U long acting insulin last night (didn't have 20 U left for full dose). Awoke with BGM 198. Says his insulin is blue and beige, does not know the name. Reports he might have refills at the pharmacy which doesn't open until . Has an appointment with his PCP scheduled for Tuesday. ROS negative aside from nausea. Past History - Past Medical History Allergies/Adverse Reactions: Allergies Allergy/AdvReac Type Severity Reaction Status Date / Time amlodipine [From [facility]] Allergy Verified 07/31/19 05:37 Home Medications: Ambulatory Orders Metoprolol Succinate [Toprol XL -] 50 mg PO DAILY 05/20/17 Sevelamer Carbonate [Renvela -] 2 tab PO TID 05/20/17 Albuterol Sulfate Inhaler - [Ventolin HFA Inhaler -] 1 - 2 inh PO Q4H PRN Atorvastatin Calcium [Lipitor] 20 mg PO HS 10/26/18 Insulin Glargine,Hum.rec.anlog [Basaglar Kwikpen U-100] 20 units SQ BID Zolpidem Tartrate [Ambien] 10 mg PO HS 10/26/18 hydrALAZINE HCL [Apresoline -] 50 mg PO TID #90 tablet 12/22/18 Walker [Ultra-Light Rollator] 1 each MC DAILY #1 each 12/23/18 Anemia: No Asthma: Yes Cancer: No Cardiac Disorders: No CVA: No COPD: No CHF: No Dementia: No Diabetes: Yes Dialysis: Yes GI Disorders: No Disorders: No HTN: Yes Hypercholesterolemia: No Liver Disease: Yes Seizures: No Thyroid Disease: No - Surgical History Abdominal Surgery: Yes (laceration) Appendectomy: No Cardiac Surgery: No Cholecystectomy: No Lung Surgery: No Neurologic Surgery: No Orthopedic Surgery: Yes (Bilateral lower leg fracture repair, pin placement) - Immunization History Immunization Up to Date: Yes - Psycho Social/Smoking Cessation Hx Smoking History: Never smoked Have you smoked in the past 12 months: No If you are a former smoker, when did you quit?: 1989 Information on smoking cessation initiated: No 'Breaking Loose' booklet given: 02/15/14 Hx Alcohol Use: No Drug/Substance Use Hx: No Substance Use Type: None Hx Substance Use Treatment: No Review of Systems - Review of Systems Able to Perform ROS?: Yes Is the patient limited Polish proficient: Yes Constitutional: No: Chills, Diaphoresis, Fever HEENTM: No: Nose Congestion, Throat Pain Respiratory: No: Cough, Orthopnea, Shortness of Breath, Wheezing, Productive cough Cardiac (ROS): No: Chest Pain, Edema, Irregular Heart Rate, Lightheadedness, Syncope ABD/GI: No: Constipated, Diarrhea, Nausea, Vomiting : No: Burning, Dysuria, Frequency Musculoskeletal: No: Muscle Pain, Muscle Weakness Integumentary: Yes: Bruising (bilateral arms). No: Rash Neurological: No: Headache, Numbness, Tingling, Weakness Psychiatric: No: Stressors, Change in Appetite Endocrine: No: Increased Urine, Unexplained Weight Gain Hematologic/Lymphatic: No: Anemia, Blood Clots, Easy Bleeding All Other Systems: Reviewed and Negative *Physical Exam - Vital Signs Last Vital Signs Temp Pulse Resp BP Pulse Ox 98.4 F 66 16 152/65 97 07/31/19 04:35 07/31/19 04:35 07/31/19 04:35 07/31/19 04:35 07/31/19 04:35 - Physical Exam 07/31/19 06:10 Vitals reviewed, AFVSS GEN: Well appearing, appears stated age, NAD, comfortable. AAOx3. HEENT: NCAT, EOMI, PERRL. Sclera anicteric, noninjected. No facial asymmetry. Moist mucous membranes. Normal voice. Trachea midline. CV: RRR, S1/S2, no murmurs / rubs / gallops appreciated. LUNG: CTAB, normal work of breathing. No wheezes, rales, rhonchi. No cough. Speaking full sentences. GI: Soft, NTND, +BS, no guarding, no rebound. No masses. Neg CVAT b/l. EXTREMITIES: 2+ distal pulses. No LE edema. No obvious deformities of all extremities. SKIN: Warm, dry, no rashes appreciated, non-jaundiced. PSYCH: Normal mood and affect. Cooperative and appropriate. NEURO: CN grossly intact. Moving all extremities well. Normal strength and sensation grossly. ED Treatment Course - ADDITIONAL ORDERS Additional order review: Laboratory Results 07/31/19 05:21 POC Glucometer 218 07/31/19 05:21 POC Glucometer 218 Medical Decision Making - Medical Decision Making 07/31/19 05:39 Patient became frustrated during assessment and stood up stating he wanted to follow up as an outpatient. Has follow up arranged. Insulin refill at pharmacy at 9 AM. BGM 218 here in the department. Eloped from department without discharge paper work or further evaluation. Discharge - Discharge Information Problems reviewed: Yes Clinical Impression/Diagnosis: Eloped from emergency department Condition: Fair Disposition: ELOPED - Follow up/Referral Referrals: Yuri Chacon MD [Primary Care Provider] - - Patient Discharge Instructions - Post Discharge Activity
--- NOTE | 2019-07-31 05:54 | PDOC ---
Attending Attestation - Resident Resident Name: Mauro Suazo - ED Attending Attestation I have performed the following: I have examined & evaluated the patient, The case was reviewed & discussed with the resident, I agree w/resident's findings & plan - HPI HPI: 07/31/19 06:08 see resident hpi - Physicial Exam PE: 07/31/19 06:08 see resident exam - Medical Decision Making 07/31/19 06:08 59-year-old male stating he ran out of insulin Patient states his pharmacy is not open until 9 AM, he has an appointment with his physician in the morning Fingerstick in-house is 218 Patient is awake alert and oriented x4 In the process of obtaining history patient became frustrated and stated he wanted to go home and will call his regular physician He eloped prior to obtaining discharge instructions/paperwork
== END 2019-07-31 06:31 | disposition left against medical advice (07) ==
LOC: JER 04:33
DX: Z53.21 Procedure and treatment not carried out due to patient leaving prior to being seen by health care provider (principal)
CPT/HCPCS: 82962; 99281-25

== ENCOUNTER 2023-01-04 13:58 | Emergency (ER) | payer OTHER ==
[2023-01-04 14:19] VITALS: BMI 22.4
[2023-01-04] MEDS ORDERED: SODIUM CHLORIDE 0.9% 500 ML INFUS.BAG IV ONE (14:43)
[2023-01-04] MEDS ORDERED: ACETAMINOPHEN 1000 MG/100 ML BAG IVPB ONE ×2 (14:43→21:38)
[2023-01-04] MEDS ORDERED: ONDANSETRON 4 MG/2 ML VIAL IVPUSH ONE (15:15)
[2023-01-04] MEDS ORDERED: ACETAMINOPHEN INJECTION 100 ML IVPB ONE ×2 (15:30→22:35)
[2023-01-04] MEDS ORDERED: ONDANSETRON 4 MG/2 ML VIAL ONE (15:30)
[2023-01-04] MEDS ORDERED: KETOROLAC TROMETHAMINE 15 MG/ML VIAL ONE (15:58)
[2023-01-04 16:10] LABS: BASO % 0.4 % (0-2.0); EOS % 0.2 % (0-4.5); HEMATOCRIT 46.5 % (35.4-49); HEMOGLOBIN 14.8 GM/dL (11.7-16.9); LYMPH % 5.6 % (8-40); MCH 27.3 pg (25.7-33.7); MCHC 31.8 g/dl (32.0-35.9); MEAN PLT VOLUME 8.6 fl (7.5-11.1); MONO % 6.4 % (3.8-10.2); NEUT % 87.4 % (42.8-82.8); PLATELET COUNT 342 10^3/uL (134-434); RBC 5.41 M/mm3 (4.00-5.60); RDW 14.9 % (11.9-15.9); WHITE BLOOD COUNT 12.7 K/mm3 (4.0-10.0)
[2023-01-04 16:13] LABS: INR 1.37 (0.83-1.09); PROTHROMBIN TIME (PATIENT) 15.8 SEC (9.7-13.0)
[2023-01-04 16:16] LABS: ACTIVATED PTT 30.7 SECONDS (25.2-36.5)
[2023-01-04 16:26] LABS: CHLORIDE 100 mmol/L (98-107); POTASSIUM 5.8 mmol/L (3.5-5.1); SODIUM 139 mmol/L (136-145)
[2023-01-04 16:28] LABS: CALCIUM 11.3 mg/dL (8.5-10.1)
[2023-01-04 16:29] LABS: ALBUMIN 3.4 g/dl (3.4-5.0); ANION GAP 14 MMOL/L (8-16); BLOOD UREA NITROGEN 25.3 mg/dL (7-18); CO2 25 mmol/L (21-32); LIPASE 90 U/L (73-393)
[2023-01-04 16:31] LABS: PHOSPHOROUS 2.3 mg/dL (2.5-4.9); SGPT/ALT 25 U/L (13-61)
[2023-01-04 16:32] LABS: CREATININE 1.4 mg/dL (0.55-1.3); SGOT/AST 10 U/L (15-37)
[2023-01-04 16:33] LABS: TOT PROT 7.2 g/dl (6.4-8.2)
[2023-01-04 16:34] LABS: ALK PHOS 108 U/L (45-117)
[2023-01-04 16:38] LABS: GLUCOSE,RANDOM 469 mg/dL (74-106)
[2023-01-04] MEDS ORDERED: ALBUTEROL SO4 2.5/IPRATROPIUM 0.5 INH SOL 3 ML VIAL.NEB. NEB ONE ×2 (16:44→17:12)
[2023-01-04] MEDS ORDERED: SODIUM ZIRCONIUM CYCLOSILICATE (LOKELMA) 5 GM PACKET PO ONE (16:45)
[2023-01-04] MEDS ORDERED: INSULIN REGULAR HUMAN 100 UNITS/ML *VIAL IVPUSH ONE (16:45)
[2023-01-04] MEDS ORDERED: SODIUM ZIRCONIUM CYCLOSILICATE (LOKELMA) 5 GM PACKET ONE (17:12)
[2023-01-04] MEDS ORDERED: INSULIN (NOVOLOG) ASPART 100 UNITS/ML 10ML VIAL ONE ×2 (17:12→21:34)
[2023-01-04] MEDS ORDERED: PIPERACILLIN/TAZOB 4.5 GM 4.5 GM in DEXTROSE 5%-WATER 100 ML IVPB ONE (17:57)
[2023-01-04] MEDS ORDERED: PIPERACILLIN/TAZOB 4.5 GM 4.5 GM/100 ML BAG IVPB ONE (19:07)
[2023-01-04 20:42] LABS: PH,URINE 5.5 (5.0-8.0); URINE APPEARANCE CLEAR; URINE BILIRUBIN NEGATIVE (NEGATIVE); URINE COLOR YELLOW; URINE GLUCOSE (UA) 3+ (NEGATIVE); URINE KETONE 1+ (NEGATIVE); URINE LEUK ESTERASE NEGATIVE (NEGATIVE); URINE NITRITE NEGATIVE (NEGATIVE); URINE PROTEIN NEGATIVE (NEGATIVE); URINE UROBILINOGEN 0.2 mg/dL (0.2-1.0)
[2023-01-04] MEDS ORDERED: INSULIN (NOVOLOG) ASPART 100 UNITS/ML 10ML VIAL SQ ONE (21:31)
[2023-01-05] MEDS ORDERED: morphine CARPU-JECT 2 MG/1 ML DISP.SYRIN IVPUSH ONE (00:38)
[2023-01-05 01:56] VITALS: BP 167/68; PULSE 78; RESP 18; TEMP 98.6
== END 2023-01-05 01:57 | disposition short-term general hospital (02) ==
LOC: JER 13:58
PROC: 3E03329 Introduction of Other Anti-infective into Peripheral Vein, Percutaneous Approach (ICD-10-PCS; principal; 2023-01-04)
PROC: 3E033GC Introduction of Other Therapeutic Substance into Peripheral Vein, Percutaneous Approach (ICD-10-PCS; 2023-01-04)
PROC: 3E033GC Introduction of Other Therapeutic Substance into Peripheral Vein, Percutaneous Approach (ICD-10-PCS; 2023-01-04)
PROC: 3E033GC Introduction of Other Therapeutic Substance into Peripheral Vein, Percutaneous Approach (ICD-10-PCS; 2023-01-04)
PROC: 3E033GC Introduction of Other Therapeutic Substance into Peripheral Vein, Percutaneous Approach (ICD-10-PCS; 2023-01-04)
PROC: 3E033GC Introduction of Other Therapeutic Substance into Peripheral Vein, Percutaneous Approach (ICD-10-PCS; 2023-01-04)
PROC: 3E0F7GC Introduction of Other Therapeutic Substance into Respiratory Tract, Via Natural or Artificial Opening (ICD-10-PCS; 2023-01-04)
DX: R10.84 Generalized abdominal pain (principal); R06.02 Shortness of breath; N15.1 Renal and perinephric abscess; Z94.0 Kidney transplant status; Z20.822 Contact with and (suspected) exposure to COVID-19
CPT/HCPCS: 0241U-QW; 36415; 74176-TC; 80053; 81003; 82962; 83690; 84100; 85025; 85610; 85730; 87040; 87086; 93005; 93010; 99285-25